=== PATIENT | female | born 1975 | race American Indian/Alaskan Native ===

== ENCOUNTER 2018-02-10 13:06 | Inpatient (IN) | payer MEDICAID ==
[2018-02-10] MEDS ORDERED: Citric Acid/Sodium Citrate Solution 30 ML Cup PO ONE (13:44)
[2018-02-10] MEDS ORDERED: Tranexamic Acid 1,000 MG in Sodium Chloride 0.9% 100 ML IV PRN ×2 (13:44→15:57)
[2018-02-10] MEDS ORDERED: Sodium Chloride 0.9% 10 ML Syringe FLUSH PRN (13:44)
[2018-02-10] MEDS ORDERED: ceFAZolin 2 GM in Premix Bag 1 BAG IV ONE (13:44)
[2018-02-10] MEDS ORDERED: Lactated Ringers 1,000 ML IV SCH ×2 (13:45)
[2018-02-10] MEDS ORDERED: Oxytocin/Normal Saline 60 UNIT/1,000 ML BAG ONE (14:02)
--- NOTE | 2018-02-10 15:08 | HP ---
CHIEF COMPLAINT: Contractions and vaginal bleeding. HISTORY OF PRESENT ILLNESS: A 42-year-old, 9, para 5-0-3-5, currently at 37 and 2/7 weeks' based on 22 and 6/7-week ultrasound, presents to Labor and Delivery complaining of being up several times during the night to urinate and noted some vaginal spotting this morning. On her way into the hospital, started contractions just after passing [place] and those have continued ever since. She has a history of prior and a successful , but wishes to deliver by repeat this time around. Also, had a history of preeclampsia, noticing increased facial puffiness as well as headaches off and on for the past 2 weeks. Blood pressures today are elevated as well. She failed her 1-hour glucose tolerance test. Accu-Chek at this time is 94. The patient has been trying to eat healthy, but has not been checking any of her blood sugars. OBSTETRICAL HISTORY: #8 delivered on 06/22/2016 by , weighing 3657 g female, living, complication gestational diabetes. #7 delivered on 01/31/2015, 37 weeks' gestation, female via primary C- section, 3175 g because of intolerance complicated by gestational diabetes. #6 delivered 05/11/2012, 38 weeks' gestation, female , vaginal delivery, weight 3175 g, preeclampsia and gestational diabetes. #5 delivered on 02/27/2004, 38 weeks' gestation, male infant, weighing 3118 g, induced labor. #4 delivered on 03/11/1999, 42 weeks' gestation female , weighing 3317 g. #3 SAB delivered in 02/1998, 12 weeks' gestation. #2 therapeutic . #1 spontaneous . No other details on the first 2 pregnancies. LABORATORY DATA: Group B strep positive. Blood type O positive. Antibody screen was negative. Rubella is immune. RPR is nonreactive. Hepatitis B nonreactive. HIV negative. Pap smear was LSIL. Gonorrhea and chlamydia were negative. Hepatitis C antibody was positive. Confirmatory testing has not yet been completed. Original urine drug screen was negative, and hemoglobin A1c was 6.2. PROBLEMS: 1. Intrahepatic cholestasis of . Prescription was written for Actigall. The patient was never able to be contacted to start that prescription. 2. Group B strep is positive. 3. Gestational diabetes. The patient reports watching her diet, but not checking blood sugars. Possibly type 2 diabetic. 4. Grand multiparity. 5. Requested tubal ligation, however, wishes to defer that at this time and have this taken care of at a later date. 6. History of bacterial vaginosis this . 7. Reports adoption planned and does not sound like that is very formal, and she is now uncertain about it. The father of the baby is involved, and it sounds like they need to talk. 8. History of preeclampsia with at least 1 or 2 of her prior pregnancies. 9. History of successful vaginal after . 10. Tobacco use disorder. 11. LSIL on Pap smear. 12. Positive HCV antibody screen. Confirmatory testing needs to be done. 13.Limited care in the 3rd trimester, only seen by Dr. Lira once and maybe 1-2 times at [place]. PAST MEDICAL HISTORY: Anxiety, reportedly type 2 diabetes on Janumet, however, on no medications since October of 2016, certainty of diagnosis is quite murky. PAST SURGICAL HISTORY: Right-sided ankle surgery in 2000, primary on 01/31/2015. FAMILY HISTORY: Maternal grandmother with diabetes. Maternal grandfather with hypertension and diabetes. Negative history for twins and cancer. SOCIAL HISTORY: The patient is single. Reports that she is a rare smoker. Denies any use of alcohol or drugs during the course of this . Lives in [place] and is currently unemployed. Father of this baby is Juan Andrade. He is working construction, and she believes that he is healthy and has not remembered to ask him about his health status, so it is really unknown. MEDICATIONS: 1. vitamin 1 daily. 2. Ranitidine 150 mg twice daily as needed. ALLERGIES: 1. Morphine caused shortness of breath and chest tightness. 2. Erythromycin, she cannot remember what the reaction was. 3. NovoLog caused dizziness and lightheadedness likely due to hypoglycemia. REVIEW OF SYSTEMS: No fever, chills, nausea, vomiting, diarrhea, or constipation. Intermittent headaches for the past week as well as facial puffiness. No right upper quadrant pain. No vaginal spotting until today. No shaye vaginal bleeding. No dysuria. No back pain. Skin has been remarkable for rash secondary to itching not that the rash came first. PHYSICAL EXAMINATION: General: This is a pleasant and cooperative, morbidly obese patient appearing her stated age. Vital Signs: Initial blood pressure 177/87, recheck 185/86, pulse of 66, temperature is 98.6, and respiratory rate 18. HEENT: Head is normocephalic and atraumatic. Eyes, ears, nose, and mouth are grossly within normal limits. Neck: Supple without adenopathy. Heart: Regular without obvious murmur. Lungs: Clear to auscultation. Abdomen: Gravid, soft, nontender. heart tones are tracing at 150 beats per minute at baseline. Moderate ssbs-jd-[id number] variability. Accelerations noted. [place] showing contractions about every 3 to 4 minutes. Cervix is 6 cm dilated, 100% effaced, high station. Bulging bag of water intact with small amount of bloody show. Cannot palpate presenting part. Extremities: Trace edema bilaterally. No erythema or tenderness. Skin: Remarkable for excoriations throughout. Last ingestion toast with peanut butter and jelly and 2 sips of Christiano-Aid approximately 2 hours prior to arrival. ASSESSMENT: 1. A 37 and 2/7 weeks' intrauterine based on 23-week ultrasound. 2. 9, para 5-0-3-5. 3. Insufficient care. 4. Intrahepatic cholestasis of , untreated. 5. Gestational possibly type 2 diabetes, untreated. 6. History of preeclampsia, high suspicion for having preeclampsia currently. 7. History of section x1. 8. History of vaginal after x1. The patient requesting repeat delivery by section at this time. 9. History of request for tubal ligation. The patient wishes to defer, which will coincide with this hospital being [facility]. 10.Group B strep positive. Blood type O positive. Rubella immune. 11.Hepatitis C antibody positive. Confirmatory testing not done yet. 12.Tobacco use disorder. 13.Obesity. 14.Uncertain disposition for the baby. 15. Anemia of . 18 Advanced maternal age. PLAN: The patient has been consented for repeat elective low transverse section, and those risks will be specifically outlined in my operative report. She has had opportunity to have her questions answered, and we will be proceeding to the operating room as soon as possible and anticipating use of spinal anesthesia. [facility] /[id number] MTDD
[2018-02-10] MEDS ORDERED: Acetaminophen/oxyCODONE 325-5 MG Tab PO PRN (15:57)
[2018-02-10] MEDS ORDERED: Ondansetron 4 MG/2 ML SDV IV PRN (15:57)
[2018-02-10] MEDS ORDERED: diphenhydrAMINE 50 MG/ML SDV IVPUSH PRN (15:57)
[2018-02-10] MEDS ORDERED: Methylergonovine 0.2 MG/1 ML Amp IM PRN (15:57)
[2018-02-10] MEDS ORDERED: Naloxone 2 MG/2 ML Syringe IVPUSH PRN (15:57)
[2018-02-10] MEDS ORDERED: ePHEDrine 50 MG/ML SDV IVPUSH PRN (15:57)
[2018-02-10] MEDS ORDERED: Acetaminophen 325 MG Tab PO PRN (15:57)
[2018-02-10] MEDS ORDERED: Misoprostol 400 MCG (4 X 100 MCG TAB) RECTAL PRN (15:57)
[2018-02-10] MEDS ORDERED: Carboprost Tromethamine 250 MCG/1 ML Amp IM ONE (15:57)
[2018-02-10] MEDS ORDERED: Oxytocin/Normal Saline 30 UNIT/500 ML BAG IV SCH (16:30)
[2018-02-10] MEDS: Simethicone 80 MG Tab.Chew PO SCH ×2 (17:06→21:47)
[2018-02-10] MEDS: Ferrous Sulfate 325 MG Tab PO SCH (18:04)
[2018-02-10] MEDS ORDERED: Labetalol 100 MG Tab PO SCH (18:15)
[2018-02-10] MEDS: Lactated Ringers 1,000 ML IV SCH (18:46)
[2018-02-10] MEDS: Acetaminophen/oxyCODONE 325-5 MG Tab PO PRN (20:33)
[2018-02-10] MEDS ORDERED: Ketorolac 30 MG/ML SDV IVPUSH SCH (22:00)
--- NOTE | 2018-02-10 22:32 | PN ---
DATE: 02/10/2018 SUBJECTIVE: The patient is less than 6 hours postop and nurses called me in because at 6:15 this evening, they went into check and change her pads and things were fine and then less than an hour later, they went back in to check her again and she had significant oozing, bleeding, and passage of numerous large clots. Fundus is being massaged and remained firm and just above the umbilicus, which is where it had been. Order was given for tranexamic acid, which was given and the bleeding slowed significantly and she has not had further blood loss. We weighed the petra and it came in at 755 g. There was, however, blood and clots on the sheets as well, so I estimated this to be at a minimum of 800 mL, if not even up to a 1000 mL of blood for this hemorrhage at this to her approximate 600 mL of blood loss at surgery, for a grand total of 1600mL. The patient reports that she had felt lightheaded initially when the nurse came into the room, but that is resolved. She denies any nausea. She has not been out of bed and has remained supine. Denies any shortness of breath or chest pressure. Denies being able to feel any of the blood clots that are coming out. She is complaining of some tenderness and pain when we massaged the fundus which is expected, especially since she was not able to have any Duramorph with the procedure due to history of morphine allergy. Otherwise, the patient denies any new complaints. No new preeclamptic symptoms. OBJECTIVE: Blood pressures have remained elevated for some time and an order for labetalol had previously been given. They came back down to near normal range and some systolics less than 100. She is getting a bolus of fluid and pressures are coming back up into the 140s over 90s. ASSESSMENT: hemorrhage, estimated between 800 and 1000 mL at this time for a grand total of approximately 1600 mL. Contributing factors to this are grand multiparity, large baby, polyhydramnios, labor at time of presentation, and delivery by . Also, with history of preeclampsia, and potential for development of HELLP syndrome. PLAN: Continue with a bolus of IV fluids, Pitocin was restarted at 50 to finish off the bag that she has, and then we will continue to monitor her bleeding closely. We would consider ultrasound for uterine contents, transfer to a level of higher care. For now, we will start with a CBC, PT, PTT, and fibrinogen to further evaluate. Continue to monitor closely for DIC. Anticipate that the patient will need a blood transfusion. She verbalized understanding to all of this and would be in agreement to do a blood transfusion if indicated. We will continue to monitor her very closely and carefully assess fundal height and uterine firmness. [facility] /[id number] PADMINI
--- NOTE | 2018-02-11 01:07 | OR ---
DATE: 02/10/2018 PROCEDURE PERFORMED: Repeat low transverse section. PREOPERATIVE DIAGNOSES: 1. A 37 and 2/7 weeks' intrauterine in active labor. 2. 9, para 5-0-3-5 by 23 week plus ultrasound. 3. Insufficient care. 4. Intrahepatic cholestasis of , untreated. 5. Gestational diabetes, not being treated, question if type 2 diabetic. 6. History of preeclampsia, prior . 7. History of section x1 and successful vaginal after section x1. 8. Group B streptococcus positive. Blood type O positive. Rubella immune. 9. Hepatitis B antibody positive, confirmatory testing not yet done. 10.Tobacco use. 11.Obesity. 12.Advanced maternal age. POSTOPERATIVE DIAGNOSES: 1. A 37 and 2/7 weeks' intrauterine in active labor. 2. 9, para 6-0-3-6 by 23 week plus ultrasound. 3. Insufficient care. 4. Intrahepatic cholestasis of , untreated. 5. Gestational diabetes, not being treated, question of type 2 diabetic. 6. History of preeclampsia, prior . 7. History of section x1 and successful vaginal after section x1. 8. Group B streptococcus positive. Blood type O positive. Rubella immune. 9. Hepatitis B antibody positive, confirmatory testing not yet done. 10.Tobacco use. 11.Obesity. 12.Delivery of a viable breech male. 13.Anemia of . 14.Gestational hypertension. Protein-creatinine ratio was only 0.21, but she did have elevated blood pressures. 15.Advanced maternal age. SURGEON: Dr. Heather Page RADIAGRAPH OPERATOR: Dr. Chepe Rudd SECOND ASSIST: Aleah Mann, MS3 BRIEF HISTORY: A 42-year-old female presented to the hospital reporting some light vaginal bleeding and spotting. Also, regular contractions for the previous 15 to 20 minutes and requesting elective repeat section. After review of her medical charts and history, she has every indication to be delivered at this time. Blood pressures were in the 170s and 180s over 90s. She had untreated ICP and untreated gestational diabetes and found to be in active labor with the cervix dilated 6 cm and 100% effaced with bulging bag of water present. presenting parts were not palpated. Urgent plans for section were made, and she was brought to the operating room. CONSENT: Discussed with the patient indications, risks, benefits, and alternatives of repeat low transverse section including risk of infection and plan for preoperative antibiotics, risk of bleeding to the point of requiring a blood transfusion as well as its inherent risks, risk of injury to any internal organs and adjacent structures including but not limited to large blood vessels, nerves, veins, intestines, fallopian tubes, ovaries, uterus, bladder, and any other adjacent structures, potential for complications for her and/or the baby that would require transfer to a higher level of care and remote risk of . She had an opportunity to answer questions, and all of those were answered and consent forms were signed and placed in the chart. ANESTHESIA: Spinal. DETAILS OF PROCEDURE: The patient was taken to the operating room and spinal anesthesia obtained. She was laid in the dorsal supine position with leftward tilt, and the pannus and abdomen taped up. Escobar indwelling catheter was placed. She was prepped in the usual fashion. Sterile drapes then applied. Skin tested and a Pfannenstiel skin incision was made with scalpel, carried down through to the underlying fascia using cautery and finger dissection. Fascia incised in the midline bilaterally with cautery and extended with traction and cautery. Superior fascia grasped with Elmer's, tented up, and dissected off bluntly. Inferior fascia also tented up and rectus muscles dissected off bluntly. Peritoneal cavity entered with a very careful use of cautery and blunt finger dissection. The Karel retractor then placed, and uterus palpated, obvious that there were copious amounts of amniotic fluid. head was not felt down in the lower uterine segment. Bladder flap was created by using Metzenbaum and smooth pickups in the usual fashion. Appropriate location for low transverse uterine incision was made and that was performed with scalpel and carried down until just a few cell layers were present. Hysterotomy site created with actual finger penetration and blunt finger dissection. Amniotic sac then ruptured with Allis forceps and there a was at least 2 liters of amniotic fluid. The feet of the baby were felt and brought out through the hysterotomy site, and he was delivered as double footling breech. Once we reached the level of the hips, he was turned sacrum anterior and brought out to the level of the chest. He was then rotated bringing the anterior shoulder as the baby's right arm tried to sweep it over the head and across the chest and was unsuccessful, therefore rotated him to right arm anterior. Dr. Rudd then was assisting with trying to get the baby out, and we were having some difficulty. Ultimately, we were able to bring the baby down further, where the right arm could then be delivered across the chest and then baby rotated back to where the left arm could be delivered and then the baby's head was delivered, making sure to maintain flexion at the neck. Baby was suctioned at the nose and mouth, and the three- vessel umbilical cord was doubly clamped, and he was taken over to the warmer for further evaluation and resuscitation. Placenta delivered via gentle cord traction and concomitant uterine massage nearly spontaneously. Uterus cleared of all clots and debris with a dry lap sponge, and the hysterotomy site closed with a running lock stitch of 0 Vicryl in the usual fashion. Additional bleeders were controlled with an additional running imbricating stitch and iqquoh-yf-kfpxe suture as applicable on about half of the hysterotomy site. There still was one bleeding area, which was controlled with a superficial [id number]-qn-tdhgi suture. This layer was irrigated, cleared of all clots and debris. The Karel retractor and 2 lap sponges were removed and then the pericolic gutters were cleared of all clots and debris. Hemostasis was verified at the hysterotomy site, and the peritoneal layer was brought together with a remnant stitch of 0 Vicryl in a running simple fashion. The subcutaneous tissues were then irrigated, cleared of any clots or debris, and subcutaneous bleeders treated with cautery. Skin was then closed with yaritza. The patient tolerated the procedure well. ESTIMATED BLOOD LOSS: 650 mL. FLUIDS: 1100 mL crystalloids. URINE OUTPUT: 250 mL clear. COMPLICATIONS: None. DISPOSITION: Mother and baby will be reunited after mother recovers in the PACU. Baby taken down to the nursery for further management. FINDINGS: Viable male , breech presentation. Weight 9 pounds 2 ounces, 4140 g, 20-1/4 inches long. scores of 9 and 9. [facility] /[id number] PADMINI
[2018-02-11] MEDS: Lactated Ringers 1,000 ML IV SCH ×2 (02:41→06:59)
[2018-02-11] MEDS: Acetaminophen/oxyCODONE 325-5 MG Tab PO PRN ×5 (03:00→21:47)
[2018-02-11] MEDS: Simethicone 80 MG Tab.Chew PO SCH ×4 (08:39→21:47)
[2018-02-11] MEDS: Ferrous Sulfate 325 MG Tab PO SCH ×2 (08:39→17:14)
[2018-02-11] MEDS: Docusate Sodium 100 MG Cap PO PRN ×2 (08:39→21:47)
--- NOTE | 2018-02-11 10:41 | PN ---
DATE: 02/11/2018 SUBJECTIVE: Postop day #1, status post requested repeat low transverse section. The patient did receive 2 units of packed red blood cells for hemorrhage after returning to the L&D floor yesterday evening. Total estimated EBL, including surgery loss, around 1600 mL. Per nursing, the patient has had dark urine output and we are currently bolusing her with fluids. No other concerns per nursing staff. No concerns per patient. She feels that her pain is well controlled on current medications. She was tolerating a clear liquid diet yesterday and did have a sandwich and some popcorn overnight and tolerated this well. She denies fevers or chills, headaches or blurry vision, lightheadedness or dizziness, nausea or vomiting, shortness of breath or chest pain, sharp abdominal pains or tenderness in any extremity. She feels the swelling in her face and extremities has improved. She has not yet passed gas or had a bowel movement. Her lochia is improving, mild in amount without passage of large clots, and and she denies any gushes. Escobar catheter is in place and the patient has not yet ambulated. OBJECTIVE: Vital Signs: Temperature 97.4 Fahrenheit, heart rate 63, blood pressure 114/63, respiratory rate 16, and oxygen saturation 99% on room air. General: Pleasant, resting comfortably, and in no acute distress. Heart: Regular rate and rhythm. S1 and S2. Lungs: Clear to auscultation bilaterally with normal respiratory effort. Abdomen: Soft, obese, nondistended. The uterus is firm and 4 fingerbreadths above the umbilicus with no excessive tenderness by palpation. The dressing over her incision is dry and intact. There is about 1 cm of dark red shadowing on the left side. Neurologic: No obvious neurologic deficits. Extremities: Trace edema in the upper and lower extremities bilaterally. No erythema or tenderness noted in any extremity. Skin: Warm, dry, and well perfused. LABORATORY DATA: White blood cells 16.7, hemoglobin 9.5, platelets 166. AST 29 , ALT 14. ASSESSMENT: 1. Postop day #1, status post requested repeat low transverse section. 2. A 37 and 2/7 weeks' intrauterine confirmed with a 23-week ultrasound. 3. G9, P6-0-3-6. 4. Insufficient care. 5. Intrahepatic cholestasis of , untreated. 6. Type 2 diabetes, untreated since October 2016 with most recent hemoglobin A1c 7.2. 7. History of preeclampsia. 8. History of section x1. 9. History of vaginal after x1. 10.History of request for tubal ligation. 11.Group B Streptococcus positive, blood type O positive, rubella immune. 12.Hepatitis C antibody positive. Confirmatory testing pending. 13.Tobacco use disorder. 14.Obesity. 15.Uncertain disposition for baby. 16.Anemia of . 17.Advanced maternal age. 18. hemorrhage, status post transfusion 2 units packed RBCs, currently asymptomatic. PLAN: We will continue to monitor closely for signs and symptoms of anemia. We will repeat CBC tomorrow morning to reassess. We will continue to monitor urine output closely and will remove Escobar catheter this afternoon if output improves. With history of uncontrolled type 2 diabetes, we will begin premeal blood glucose monitoring. Continue all other routine and postoperative cares. Please see orders for further details. The patient was encouraged to ambulate after the Escobar is removed. The patient expressed understanding and is in agreement with the above plan and all of her questions were answered. The history, physical, assessment and plan are per Dr. Campo, and this note is being scribed for Dr. Campo. [facility] /[id number] Patient seen and examined. Agree with note as scribed on my behalf by Aleah Mann MS3. -briar shop supervisor 02/20/18 PADMINI
[2018-02-11] MEDS ORDERED: Dexamethasone 4 MG/ML SDV IV ONE (15:36)
[2018-02-11] MEDS ORDERED: Ketorolac 30 MG/ML SDV IVPUSH ONE (15:36)
[2018-02-11] MEDS ORDERED: Bupivacaine 0.75%/D5W 2 ML Amp ONE (15:36)
[2018-02-11] MEDS ORDERED: Propofol 200 MG/20 ML SDV IV ONE (15:36)
[2018-02-11] MEDS ORDERED: fentaNYL 100 MCG/2 ML SDV IV ONE (15:36)
[2018-02-11] MEDS: metFORMIN 500 MG Tab PO SCH (17:14)
[2018-02-11] MEDS: Ibuprofen 800 MG Tab PO PRN (17:15)
[2018-02-12] MEDS: Ibuprofen 800 MG Tab PO PRN ×3 (01:33→20:47)
[2018-02-12] MEDS: Acetaminophen/oxyCODONE 325-5 MG Tab PO PRN ×5 (01:33→22:26)
[2018-02-12] MEDS: Ferrous Sulfate 325 MG Tab PO SCH ×2 (08:27→17:48)
[2018-02-12] MEDS: metFORMIN 500 MG Tab PO SCH ×2 (08:27→17:47)
[2018-02-12] MEDS: Simethicone 80 MG Tab.Chew PO SCH ×4 (08:27→20:47)
[2018-02-12] MEDS: Docusate Sodium 100 MG Cap PO PRN ×2 (08:28→17:50)
--- NOTE | 2018-02-12 12:46 | PN ---
DATE: 02/12/2018 SUBJECTIVE: Postoperative day #2, status post requested repeat low transverse section. Concerns per Nursing include lack of interaction of mother with the baby. Discussed having the baby spend more time rooming with mother today than at Nursery. Concerns per patient include lack of bowel movements or passing gas and feeling "gassy." No other concerns per patient. She feels that her pain is well controlled on current medications. She is tolerating a general diet REVIEW OF SYSTEMS: She reports nausea and thinks this is related to her lack of bowel movement and passing gas. She denies fevers or chills, headaches or blurry vision, lightheadedness or dizziness, vomiting, shortness of breath or chest pain, sharp abdominal pain, or erythema or tenderness in any extremity. She feels that the swelling in her extremities continues to improve. Her lochia is mild in amount and improving. She is ambulating without difficulty. OBJECTIVE: Vital Signs: Temperature 97.7, blood pressure 130/64, heart rate 70, respiratory rate 20, and oxygen saturation 98% on room air. General: Pleasant, resting comfortably, and in no acute distress. Heart: Regular rate and rhythm. S1 and S2. Lungs: Clear to auscultation bilaterally with normal respiratory effort. Abdomen: Soft, obese, and mildly distended. Pelvic: The uterus is firm but it is difficult to appreciate the exact location due to large pannus, but it is approximately 5 fingerbreadths above the umbilicus. No excessive tenderness by palpation. Her incision is covered with clean gauze. On removal of the gauze, the incision is without erythema, edema, or drainage. Neurologic: No obvious neurologic deficits. Extremities: No edema, erythema, or tenderness in any extremity. Skin: Warm, dry, and well perfused. LABORATORY DATA: White blood cells 15.9, hemoglobin 9.6, platelets 188. Premeal blood glucose measurements from yesterday include 128 and 131. Fasting glucose this morning before breakfast is 91. ASSESSMENT: 1. Postoperative day #2, status post requested repeat low transverse section. 2. A 37 and 2/7 weeks' intrauterine confirmed with a 23-week ultrasound. 3. G9, P5-0-3-5. 4. Insufficient care. 5. Intrahepatic cholestasis of , untreated. 6. Type 2 diabetes, untreated, since 10/2016 with most recent hemoglobin A1c of 7.2. 7. History of preeclampsia. 8. History of section x1. 9. History of vaginal after x1. 10.History of request for tubal ligation. 11.Group B streptococcus positive. Blood type O positive. Rubella immune. 12.Hepatitis C antibody positive. Confirmatory testing pending. 13.Tobacco use disorder. 14.Obesity. 15.Anemia of . 16.Advanced maternal age. 17. hemorrhage, status post transfusion 2 units of packed red blood cells, asymptomatic. PLAN: I encouraged the patient to ambulate to help with gassy feeling and distention. Also discussed choosing foods rich in fiber and nonconstipating. As hemoglobin is stable, but she is still anemic, we will continue to monitor closely for signs and symptoms of anemia. Continue all other routine and postoperative cares. Please see orders for further details. Per the patient, she did have discussion with father of the baby yesterday, and they have decided to keep the baby, and [facility]et did visit with them yesterday. We anticipate discharge tomorrow, 02/13/2018. The patient expressed understanding and is in agreement with the above plan, and all of her questions were answered. The history, physical, assessment and plan are per Dr. Pike; and this note is being scribed for Dr. Pike. [facility] /[id number] MTDDesire
[2018-02-12] MEDS ORDERED: Bisacodyl 10 MG Supp RECTAL ONE (13:14)
[2018-02-13] MEDS: Acetaminophen/oxyCODONE 325-5 MG Tab PO PRN ×4 (02:49→19:41)
[2018-02-13] MEDS: Ibuprofen 800 MG Tab PO PRN ×3 (06:34→23:19)
[2018-02-13] MEDS: Ferrous Sulfate 325 MG Tab PO SCH ×2 (08:08→18:10)
[2018-02-13] MEDS: metFORMIN 500 MG Tab PO SCH ×2 (08:08→18:11)
[2018-02-13] MEDS: Simethicone 80 MG Tab.Chew PO SCH ×4 (08:08→23:18)
--- NOTE | 2018-02-13 10:39 | PN ---
DATE: 02/13/2018 SUBJECTIVE: Postoperative day #3, status post requested repeat low transverse section. No concerns per nursing staff. The patient was given a suppository yesterday and subsequently was able to have a bowel movement and began passing gas. No concerns per patient. She feels that her pain is well controlled on current medications. She is tolerating a general diet and ambulating without difficulty. She denies fevers or chills, headaches or blurry vision, lightheadedness or dizziness, nausea or vomiting, shortness of breath or chest pain, sharp abdominal pains, or edema, erythema or tenderness in any extremity. Her lochia is mild in amount and continues to improve. The patient denies dysuria or burning with urination. OBJECTIVE: Vital Signs: Temperature 98.4 Fahrenheit, heart rate 85, blood pressure 111/69, respiratory rate 18, and oxygen saturation 98% on room air. General: Pleasant, resting comfortably, and in no acute distress. Heart: Regular rate and rhythm. S1 and S2. Lungs: Clear to auscultation bilaterally with normal respiratory effort. Abdomen: Soft, obese, and nondistended. The uterus is firm and approximately 5 fingerbreadths above the umbilicus, which is difficult to appreciate with the large pannus. The incision is covered with gauze that has minimal blood. The incision itself is without erythema, edema, or drainage. Neurologic: No obvious neurologic deficits. Extremities: No edema, erythema, or tenderness in any extremity. Skin: Warm, dry, and well perfused. LABORATORY DATA: Last premeal blood glucose at 5:30 p.m. yesterday, 128. The patient is currently on metformin b.i.d. ASSESSMENT: 1. Postoperative day #3, status post requested repeat low transverse section. 2. A 37 and 2/7 weeks' intrauterine , confirmed on a 23-week ultrasound. 3. 9, para 5-0-3-5. 4. Insufficient care. 5. Intrahepatic cholestasis of , untreated. 6. Type 2 diabetes, untreated upon admit since 10/2016. Most recent hemoglobin A1c of 7.2, currently taking metformin b.i.d. with t.i.d. premeal glucose checks. 7. History of preeclampsia. 8. History of section x1. 9. History of vaginal after x1. 10.History of request for tubal ligation. 11.Group B Streptococcus positive, blood type O positive, rubella immune. 12.Hepatitis C antibody positive. Confirmatory test pending. 13.Tobacco use disorder. 14.Obesity. 15.Anemia of . 16.Advanced maternal age. 17. hemorrhage, status post transfusion 2 units packed red blood cells, currently symptomatic. 18.Transportation issues. PLAN: With complication of hemorrhage, will plan for discharge tomorrow and continue to observe the patient today. We will continue to monitor closely for signs and symptoms of anemia. Will continue all other routine and postoperative cares. Please see orders for further details. For followup appointments, the patient did request to be seen out at [facility] in [place] if possible, but was informed of transportation options available and was more open to being seen in [place] for followup. At this time, her baby is being admitted for hyperbilirubinemia and treated with phototherapy. The patient expressed understanding of and agreement with the above plan, and all of her questions were answered. The history and physical, assessment and plan are per Dr. Campo and this note is being scribed for Dr. Campo. [facility] /[id number] MTDDesire
[2018-02-13] MEDS: Docusate Sodium 100 MG Cap PO PRN (19:42)
[2018-02-14] MEDS: Acetaminophen/oxyCODONE 325-5 MG Tab PO PRN ×3 (00:20→08:32)
[2018-02-14] MEDS: Ferrous Sulfate 325 MG Tab PO SCH (08:31)
[2018-02-14] MEDS: metFORMIN 500 MG Tab PO SCH (08:31)
[2018-02-14] MEDS: Docusate Sodium 100 MG Cap PO PRN (08:32)
[2018-02-14] MEDS: Ibuprofen 800 MG Tab PO PRN (08:32)
[2018-02-14] MEDS: Simethicone 80 MG Tab.Chew PO SCH ×2 (08:33→15:23)
--- NOTE | 2018-02-14 22:09 | DISCH ---
ADMISSION DIAGNOSES: 1. A 37 and 2/7 week intrauterine based on 23 week ultrasound. 2. 9, para 5-0-3-5. 3. Insufficient care, first visit at 31 weeks' gestation. 4. intrahepatic cholestasis of , untreated. 5. Gestational possibly type 2 diabetic, untreated. 6. History of preeclampsia, suspicion of current preeclampsia. 7. History of section x1. 8. History of vaginal after x1. The patient requests section for this delivery. 9. History of requests for tubal ligation, which will be deferred at this time. 10.Group B strep positive. Blood type O positive. Rubella immune. 11.Hepatitis C antibody positive, confirmatory testing not yet done. 12.Tobacco use disorder. 13.Obesity. 14.Uncertain disposition of the baby. 15.Anemia of . 16.Advanced maternal age. DISCHARGE DIAGNOSES: 1. A 37 and 2/7 week intrauterine based on 23 week ultrasound. 2. 9, para 6-0-3-6. 3. Insufficient care, first visit at 31 weeks' gestation. 4. Confirmed intrahepatic cholestasis of . 5. Gestational possibly type 2 diabetic, untreated. 6. Confirmed preeclampsia of . 7. History of section x1. 8. History of vaginal after x1. The patient requests section for this delivery. 9. History of requests for tubal ligation, which will be deferred at this time. 10.Group B strep positive. Blood type O positive. Rubella immune. 11.Hepatitis C antibody positive, confirmatory testing not yet done. 12.Tobacco use disorder. 13.Obesity. 14.Anemia of . 15.Advanced maternal age. BRIEF HISTORY: This 42-year-old female presented to the hospital with complaints of contractions increasing in frequency and severity, history of prior section with successful , but the patient requested repeat section for this delivery. The patient had poor care for this . First visit at [address] Elin Lira. See admission history for full details. HOSPITAL COURSE: Infant was found to be in double footling breech position via section. Mother also had postoperative hemorrhage approximately 6 hours postoperative. The patient had 800 to 1000 mL blood loss. For hemorrhage, her grand total of 1600 mL blood loss. The patient received a blood transfusion with a hemoglobin of 8.7, and hemoglobin on february 12 was 9.6. The patient was started on metformin 500 mg twice a day with meals with 3 times a day blood sugar checks. The patient visited with [employer] and has decided to retain custody of her and not pursue adoption. The patient's recovery from section has been progressing well. She required a suppository on February 12, 2018 for a bowel movement. Since that suppository, she has not had a bowel movement, but she is having flatulence when she is standing and walking. The patient denies headaches, nausea, vomiting, blurry vision, or abdominal pain. Her fundus is firm, but due to the large pannus, unable to locate the exact relation to umbilicus. Lochia is in a decreasing amount. The patient describes it as slightly less than a menstrual period. DISCHARGE CONDITION: Good. PHYSICAL EXAMINATION: Vital Signs: Temperature 96.6 Fahrenheit, pulse 81, blood pressure 130/90, oxygen saturation 100% on room air with respirations 16. Heart: Regular without murmur. S1 and S2 and regular rate. Lungs: Clear to auscultation bilaterally. Abdomen: Soft and nontender. Bowel sounds normoactive. Fundus is firm with relation to umbilicus. Difficult to assess due to large pannus. Extremities: Edema of lower legs and feet +1. No erythema or tenderness. LABORATORY DATA: Hemoglobin on admission on February 10 was 8.7. Hemoglobin on February 12 was 9.6. Platelets on February 10 was 199. Platelets on february 12 was 188. DISPOSITION: Home with family. MEDICATIONS: 1. Tylenol 600 mg every 6 hours as needed for pain. 2. Colace 100 mg twice daily as needed for constipation. 3. Ibuprofen 600 mg every 8 hours as needed for pain. 4. Metformin 500 mg twice a day with meals. 5. Percocet 325/5 mg one to two tablets as needed every 4 to 6 hours for pain. INSTRUCTIONS: The patient is to take her infant to [facility] on Saturday for weight and bilirubin check. At that time, she is able to have a Depo-Provera shot for control as she is having to defer her tubal ligation surgery. At that appointment, her yaritza will be removed as well. The patient will need to have a hip ultrasound done, will need to be ordered through [place] and can be done here at [facility]. At the appointment on February 17, she will need to make a 6 week visit with her provider at [facility]. During this 6 weeks, she should not lift anything over 25 pounds and needs to be on pelvic rest for those 6 weeks. Routine section delivery instructions were provided and her questions were answered. D[place]ed with patient [place] to these appointments. ANDIE /[id number] PADMINI
== END 2018-02-14 11:45 | disposition home or self-care (01) | DRG 765 ==
LOC: DL.OBCHECK 13:06 → DL.OB 13:40 → EEVIPCON 15:01 → DL.OB 15:01 → OBSVTOIN 15:01 → DL.MS 02-13 09:40
PROVIDERS: ADMIT Family Medicine; ATTEND Family Medicine
PROC: 10D00Z1 Extraction of Products of Conception, Low, Open Approach (ICD-10-PCS; principal; 2018-02-10)
PROC: 30233N1 Transfusion of Nonautologous Red Blood Cells into Peripheral Vein, Percutaneous Approach (ICD-10-PCS; 2018-02-10)
PROC: 30233N1 Transfusion of Nonautologous Red Blood Cells into Peripheral Vein, Percutaneous Approach (ICD-10-PCS; 2018-02-11)
DX: O34.211 Maternal care for low transverse scar from previous cesarean delivery (principal); O72.2 Delayed and secondary postpartum hemorrhage; Z3A.37 37 weeks gestation of pregnancy; Z37.0 Single live birth; O24.425 Gestational diabetes mellitus in childbirth, controlled by oral hypoglycemic drugs; O99.214 Obesity complicating childbirth; E66.01 Morbid (severe) obesity due to excess calories; Z68.35 Body mass index [BMI] 35.0-35.9, adult; O99.334 Smoking (tobacco) complicating childbirth; F17.200 Nicotine dependence, unspecified, uncomplicated; O99.013 Anemia complicating pregnancy, third trimester; D64.9 Anemia, unspecified; O13.4 Gestational [pregnancy-induced] hypertension without significant proteinuria, complicating childbirth; O99.613 Diseases of the digestive system complicating pregnancy, third trimester; K80.50 Calculus of bile duct without cholangitis or cholecystitis without obstruction
CPT/HCPCS: 36415; 36430; 80305; 82570; 82962; 83036; 83615; 84156; 84450; 84460; 84520; 84550; 85025; 85027; 85384; 85610; 85730; 86850; 86900; 86901; 86920; 86922; 87522; 87902; A9270-GY; J0690; J1100; J1885; J2590; J2704; J3010; J7050; J7120; P9016

== ENCOUNTER 2018-02-17 00:42 | Emergency (ER) | payer MEDICAID ==
--- NOTE | 2018-02-17 01:06 | EDM.PDOC ---
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 been fine till tonight started bleeding vaginally & incision site. no pain had pain meds. 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: Other (see below) Other Treatments PROPULSION SYSTEMS ENGINEER: percocets last taken at 2100 last evening - Related Data Allergies Allergy/AdvReac Type Severity Reaction Status Date / Time erythromycin base Allergy Cannot Verified 02/17/18 00:58 Remember morphine Allergy Difficulty Verified 02/17/18 00:58 Breathing Home Meds: Home Meds Vit with Ca/FA/Iron [ Plus Iron] 1 tab PO DAILY 02/10/18 [ History] Acetaminophen [Tylenol] 650 mg PO Q6H PRN tablet 02/14/18 [Rx] Acetaminophen/oxyCODONE [Percocet 325-5 MG] 1 tab PO Q4H PRN #0 tablet 02/14/18 [Rx] Acetaminophen/oxyCODONE [Percocet 325-5 MG] 2 tab PO Q4H PRN #0 tablet 02/14/18 [Rx] Docusate Sodium [Colace] 100 mg PO Q12H PRN cap 02/14/18 [Rx] Ibuprofen [IMW: Ibuprofen] 800 mg PO Q8H PRN tablet 02/14/18 [Rx] metFORMIN [Glucophage] 500 mg PO BIDMEALS tablet 02/14/18 [Rx] Ferrous Sulfate [Iron] 325 mg PO BID 02/17/18 [History] Past Medical History 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: , 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 , 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 Psychiatric History: Reports: Anxiety Endocrine/Metabolic History: Reports: Diabetes, Gestational, Diabetes, Type II, Obesity/BMI 30+ Hematologic History: Reports: Anemia - Infectious Disease History Infectious Disease History: Reports: Hepatitis C Social & Family History - Family History Family Medical History: Noncontributory - Tobacco Use Smoking Status *Q: Current Every Day Smoker Years of Tobacco use: 20 Packs/Tins Daily: 0.5 Used Tobacco, but Quit: No Second Hand Smoke Exposure: Yes - Caffeine Use Caffeine Use: Reports: Soda - Recreational Drug Use Recreational Drug Use: No ED ROS GENERAL - Review of Systems Review Of Systems: ROS reveals no pertinent complaints other than HPI. ED EXAM, GI/ABD - Physical Exam Exam: See Below Exam Limited By: No Limitations General Appearance: Alert, WD/WN, Mild Distress, Other (discomfort) Ears: Hearing Grossly Normal Throat/Mouth: Normal Voice, No Airway Compromise Head: Atraumatic Neck: Non-Tender, Full Range of Motion Respiratory/Chest: No Respiratory Distress Cardiovascular: Regular Rate, Rhythm GI/Abdominal Exam: Soft, Non-Tender, Other (incision intact minimal oozing,) (Female) Exam: Other (no further vag bleeding). No: Vaginal Bleeding Neurological: Alert, Oriented, Normal Cognition, Normal Gait, No Motor/Sensory Deficits Psychiatric: Normal Affect, Normal Mood Skin Exam: Warm, Dry, Normal Color Lymphatic: No Adenopathy Course - Vital Signs Last Recorded V/S: Last Vital Signs Temp 36.1 C 02/17/18 00:48 Pulse 97 02/17/18 00:48 Resp 18 02/17/18 00:48 BP 163/71 H 02/17/18 00:48 Pulse Ox 99 02/17/18 00:48 - Orders/Labs/Meds Labs: Laboratory Tests 02/17/18 02/17/18 Range/Units 00:50 00:50 WBC 13.8 H (5.0-10.0) 10^3/uL RBC 4.18 L (4.2-5.4) 10^6/uL Hgb 11.5 L D (12.0-16.0) g/dL Hct 36.2 L (37.0-47.0) % MCV 86.6 D (80-100) fL MCH 27.5 (27.0-34.0) pg MCHC 31.8 L (33.0-35.0) g/dL Plt Count 342 D (150-450) 10^3/uL Neut % (Auto) 75.5 H (42.2-75.2) % Lymph % (Auto) 15.2 L (20.5-50.1) % [place] % (Auto) 8.8 H (2-8) % Eos % (Auto) 0.4 L (1.0-3.0) % Baso % (Auto) 0.1 (0.0-1.0) % Sodium 137 (135-145) mmol/L Potassium 4.3 (3.6-5.0) mmol/L Chloride 108 (101-111) mmol/L Carbon Dioxide 24.0 (21.0-31.0) mmol/L Anion Gap 9.3 BUN 9 (7-18) mg/dL Creatinine 0.6 (0.6-1.3) mg/dL Est Cr Clr Drug Dosing 125.73 mL/min Estimated GFR (MDRD) > 60 BUN/Creatinine Ratio 15.00 Glucose 127 H (74-105) mg/dL Calcium 7.9 L (8.4-10.2) mg/dl Total Bilirubin 1.2 H (0.2-1.0) mg/dL AST 62 H (10-42) IU/L ALT 32 (10-60) IU/L Alkaline Phosphatase 179 H (42-121) IU/L Total Protein 6.6 L (6.7-8.2) g/dl Albumin 2.3 L (3.2-5.5) g/dl Globulin 4.3 Albumin/Globulin Ratio 0.53 - Re-Assessments/Exams Free Text/Narrative Re-Assessment/Exam: 02/17/18 01:33 results discussed with pt who is feeling much better presently Departure - Departure Time of Disposition: 01:33 Disposition: Home, Self-Care 01 Condition: Good Clinical Impression: Post-op bleeding Qualifiers: Surgical complication system/body Area: subcutaneous tissue Procedure type: non -dermatologic Qualified Code(s): L76.22 - Postprocedural hemorrhage of skin and subcutaneous tissue following other procedure - Discharge Information Forms: ED Department Discharge Additional Instructions: 1) rest and avoid bending lifting straining 2) see Dr Campo tomorrow.
[2018-02-17 01:22] LABS: CHLORIDE,CL 108 mmol/L (101-111); SODIUM,NA 137 mmol/L (135-145)
== END 2018-02-17 01:50 | disposition home or self-care (01) ==
LOC: DL.ED 00:42
DX: O72.2 Delayed and secondary postpartum hemorrhage (principal); F17.210 Nicotine dependence, cigarettes, uncomplicated; E11.9 Type 2 diabetes mellitus without complications; Z88.1 Allergy status to other antibiotic agents; Z88.5 Allergy status to narcotic agent; Z79.899 Other long term (current) drug therapy
CPT/HCPCS: 36415; 80053; 85025; 99283

== ENCOUNTER 2023-02-13 23:12 | Emergency (ER) | payer MEDICAID ==
[2023-02-13 23:51] LABS: BASOPHILS PERCENT AUTO 0.2 % (0.0-1.0); EOSINOPHILS PERCENT AUTO 0.8 % (1.0-3.0); HEMATOCRIT 38.3 % (37.0-47.0); HEMOGLOBIN 12.7 g/dL (12.0-16.0); LYMPHOCYTES PERCENT AUTO 35.3 % (20.5-50.1); MEAN CORPUSCULAR HEMOGLOBIN 30.6 pg (27.0-34.0); MEAN CORPUSCULAR HGB CONC 33.2 g/dL (33.0-35.0); MEAN CORPUSCULAR VOLUME 92.3 fL (80-100); NEUTROPHILS PERCENT AUTO 55.7 % (42.2-75.2); PLATELET COUNT,PLT 117 10^3/uL (150-450); RED BLOOD CELL COUNT 4.15 10^6/uL (4.2-5.4); WHITE BLOOD CELL COUNT,WBC 5.1 10^3/uL (5.0-10.0)
[2023-02-14 00:05] LABS: HCG QUALITATIVE,SERUM POSITIVE (NEGATIVE)
[2023-02-14 00:06] LABS: PROTHROMBIN TIME 10.6 SEC (9.0-12.0)
[2023-02-14 00:12] LABS: ALANINE AMINOTRANSFERASE,ALT 89 U/L (14-59); ALBUMIN 2.8 g/dL (3.4-5.0); ALKALINE PHOSPHATASE 287 U/L (46-116); ANION GAP 13.9 mEq/L (7-13); ASPARTATE AMNIOTRANSFERASE,AST 57 U/L (15-37); BILIRUBIN TOTAL 0.3 mg/dL (0.2-1.0); BLOOD UREA NITROGEN,BUN 9 mg/dL (7-18); BUN/CREATININE RATIO 11.4 (No establ ref range); CALCIUM 8.2 mg/dL (8.5-10.1); CARBON DIOXIDE,CO2 23 mmol/L (21-32); CHLORIDE,CL 104 mmol/L (98-107); CREATININE 0.79 mg/dL (0.55-1.02); EST CRCL DRUG DOSING (CG) 87.45 mL/min; POTASSIUM,K 3.9 mmol/L (3.5-5.1); PROTEIN TOTAL,TP 7.5 g/dL (6.4-8.2); SODIUM,NA 137 mmol/L (136-145)
[2023-02-14 00:15] LABS: ESTIMATED GFR 94 mL/min (>=60); GLUCOSE RANDOM 414 mg/dL (70-99)
== END 2023-02-14 03:55 | disposition home or self-care (01) ==
LOC: DL.ED 23:12
DX: O03.4 Incomplete spontaneous abortion without complication (principal); I10 Essential (primary) hypertension; E11.9 Type 2 diabetes mellitus without complications; E66.9 Obesity, unspecified; Z88.5 Allergy status to narcotic agent; Z88.1 Allergy status to other antibiotic agents; Z72.0 Tobacco use; Z79.84 Long term (current) use of oral hypoglycemic drugs
CPT/HCPCS: 36415; 76817; 80053; 84702; 84703; 85025; 85610; 86850; 86900; 86901; 99283; 99285

== ENCOUNTER 2023-04-22 17:30 | Emergency (ER) | payer MEDICAID ==
[2023-04-22] MEDS ORDERED: Sodium Chloride 0.9% 1,000 ML IV ONE (18:26)
[2023-04-22] MEDS ORDERED: Sodium Chloride 0.9% 10 ML Syringe FLUSH PRN (18:26)
[2023-04-22 18:43] LABS: BASOPHILS PERCENT AUTO 0.2 % (0.0-1.0); EOSINOPHILS PERCENT AUTO 0.2 % (1.0-3.0); HEMATOCRIT 40.2 % (37.0-47.0); HEMOGLOBIN 13.2 g/dL (12.0-16.0); LYMPHOCYTES PERCENT AUTO 51.5 % (20.5-50.1); MEAN CORPUSCULAR HEMOGLOBIN 27.5 pg (27.0-34.0); MEAN CORPUSCULAR HGB CONC 32.8 g/dL (33.0-35.0); MEAN CORPUSCULAR VOLUME 83.8 fL (80-100); MONOCYTES PERCENT AUTO 7.4 % (2-8); NEUTROPHILS PERCENT AUTO 40.7 % (42.2-75.2); PLATELET COUNT,PLT 127 10^3/uL (150-450); WHITE BLOOD CELL COUNT,WBC 5.3 10^3/uL (5.0-10.0)
[2023-04-22 19:04] LABS: ALBUMIN 3.2 g/dL (3.4-5.0); ANION GAP 19.7 mEq/L (7-13); BILIRUBIN TOTAL 0.5 mg/dL (0.2-1.0); BUN/CREATININE RATIO 9.2 (No establ ref range); CALCIUM 8.2 mg/dL (8.5-10.1); CREATININE 0.65 mg/dL (0.55-1.02); EST CRCL DRUG DOSING (CG) 106.29 mL/min; POTASSIUM,K 3.7 mmol/L (3.5-5.1); PROTEIN TOTAL,TP 9.5 g/dL (6.4-8.2)
[2023-04-22 19:07] LABS: A/G RATIO 0.51
[2023-04-22 20:01] LABS: AMPHETAMINES,URINE NEGATIVE (NEGATIVE); BARBITURATES,URINE NEGATIVE (NEGATIVE); BENZODIAZEPINE,URINE NEGATIVE (NEGATIVE); MDMA (ECSTASY), URINE NEGATIVE (NEGATIVE); METHADONE,URINE NEGATIVE (NEGATIVE); METHAMPHETAMINES,URINE NEGATIVE (NEGATIVE); OPIATES,URINE NEGATIVE (NEGATIVE); OXYCODONE,URINE NEGATIVE (NEGATIVE); PHENCYCLIDINE,URINE NEGATIVE (NEGATIVE); TCA,URINE NEGATIVE (NEGATIVE)
== END 2023-04-22 19:36 | disposition left against medical advice (07) ==
LOC: DL.ED 17:30
DX: Z53.21 Procedure and treatment not carried out due to patient leaving prior to being seen by health care provider (principal)
CPT/HCPCS: 36415; 80053; 80143; 80179; 80305; 80307; 83735; 85025; 93005; J7030; J3490

== ENCOUNTER 2023-11-22 00:55 | Inpatient (IN) | payer MEDICAID ==
[2023-11-22] MEDS: Sodium Chloride 0.9% 10 ML Syringe FLUSH PRN (01:13)
[2023-11-22] MEDS: Sodium Chloride 0.9% 1,000 ML IV SCH ×3 (01:13→05:11)
[2023-11-22 01:21] LABS: HEMATOCRIT 36.4 % (37.0-47.0); HEMOGLOBIN 12.2 g/dL (12.0-16.0); MEAN CORPUSCULAR HEMOGLOBIN 28.4 pg (27.0-34.0); MEAN CORPUSCULAR HGB CONC 33.5 g/dL (33.0-35.0); MEAN CORPUSCULAR VOLUME 84.8 fL (80-100); PLATELET COUNT,PLT 45 10^3/uL (150-450); RED BLOOD CELL COUNT 4.29 10^6/uL (4.2-5.4); WHITE BLOOD CELL COUNT,WBC 11.9 10^3/uL (5.0-10.0)
[2023-11-22 01:31] LABS: BASOPHILS PERCENT AUTO 0.1 % (0.0-1.0); EOSINOPHILS PERCENT AUTO 0.2 % (1.0-3.0); LYMPHOCYTES PERCENT AUTO 5.5 % (20.5-50.1); MONOCYTES PERCENT AUTO 4.5 % (2-8); NEUTROPHILS PERCENT AUTO 89.7 % (42.2-75.2)
[2023-11-22 01:41] LABS: KETONES,BLOOD NEGATIVE
[2023-11-22 01:47] LABS: BAND PERCENT MAN 10 %; LYMPHOCYTES PERCENT MAN 6 % (20-50); MONOCYTES PERCENT MAN 4 % (2-8); SEG NEUTROPHILS PERCENT MAN 80 % (42-75)
[2023-11-22 01:47] LABS: CORONAVIRUS COVID-19 NAA NEGATIVE (NEGATIVE); INFLUENZA A NAA NEGATIVE (NEGATIVE); INFLUENZA B NAA NEGATIVE (NEGATIVE); RESPIRATORY SYNCYTIAL VIR NAA NEGATIVE (NEGATIVE)
[2023-11-22 01:50] LABS: ALANINE AMINOTRANSFERASE,ALT 30 U/L (14-59); ALBUMIN 1.7 g/dL (3.4-5.0); ALKALINE PHOSPHATASE 425 U/L (46-116); ANION GAP 13.1 mEq/L (7-13); ASPARTATE AMNIOTRANSFERASE,AST 62 U/L (15-37); BILIRUBIN TOTAL 2.7 mg/dL (0.2-1.0); BLOOD UREA NITROGEN,BUN 23 mg/dL (7-18); BUN/CREATININE RATIO 13.9 (No establ ref range); CALCIUM 8.1 mg/dL (8.5-10.1); CARBON DIOXIDE,CO2 24 mmol/L (21-32); CHLORIDE,CL 88 mmol/L (98-107); CREATININE 1.65 mg/dL (0.55-1.02); EST CRCL DRUG DOSING (CG) 41.43 mL/min; POTASSIUM,K 3.1 mmol/L (3.5-5.1); PROTEIN TOTAL,TP 6.7 g/dL (6.4-8.2); SODIUM,NA 122 mmol/L (136-145)
[2023-11-22 01:51] LABS: A/G RATIO 0.34; ESTIMATED GFR 39 mL/min (>=60); GLUCOSE RANDOM 520 mg/dL (70-99)
[2023-11-22] MEDS: Potassium Chloride 10% 20 MEQ/15 ML Soln 15 ML UD Cup PO ONE (02:18)
[2023-11-22] MEDS ORDERED: Glucagon,Human Recombinant 1 MG Vial IM PRN ×2 (02:21→09:36)
[2023-11-22] MEDS ORDERED: 50% Dextrose in Water 50 ML Syringe IVPUSH PRN ×2 (02:21→09:36)
[2023-11-22] MEDS: Potassium Chloride 10 MEQ in Premix Bag 1 BAG IV ONE (02:24)
[2023-11-22] MEDS: Sodium Chloride 0.9% 1,000 ML IV ONE (02:24)
[2023-11-22 02:33] LABS: APPEARANCE,URINE SLIGHTLY CLOUDY (CLEAR); BILIRUBIN,URINE SMALL (NEGATIVE); COLOR,URINE YELLOW (YELLOW); GLUCOSE,URINE 500 (NEGATIVE); KETONES,URINE TRACE (NEGATIVE); LEUKOCYTE ESTERASE,URINE SMALL (NEGATIVE); NITRITE,URINE NEGATIVE (NEGATIVE); OCCULT BLOOD,URINE MODERATE (NEGATIVE); PH,URINE 5.5 (5.0-9.0); PROTEIN,URINE 100 (NEGATIVE)
[2023-11-22 02:41] LABS: WBC,URINE >100 /HPF (0-5/HPF)
[2023-11-22 02:42] LABS: BACTERIA,URINE MANY /HPF (0-FEW/HPF); EPITHELIAL CELLS,URINE FEW /HPF (NOT SEEN)
[2023-11-22] MEDS: Ketorolac 30 MG/ML SDV IVPUSH ONE (02:57)
[2023-11-22 03:06] LABS: METHAMPHETAMINES,URINE POSITIVE (NEGATIVE)
[2023-11-22 03:07] LABS: AMPHETAMINES,URINE NEGATIVE (NEGATIVE); BARBITURATES,URINE NEGATIVE (NEGATIVE); BENZODIAZEPINE,URINE NEGATIVE (NEGATIVE); MDMA (ECSTASY), URINE NEGATIVE (NEGATIVE); METHADONE,URINE NEGATIVE (NEGATIVE); OPIATES,URINE NEGATIVE (NEGATIVE); OXYCODONE,URINE NEGATIVE (NEGATIVE); PHENCYCLIDINE,URINE NEGATIVE (NEGATIVE); TCA,URINE NEGATIVE (NEGATIVE)
[2023-11-22] MEDS: Ondansetron 4 MG/2 ML SDV IVPUSH ONE (03:27)
[2023-11-22] MEDS: cefTRIAXone 1 GM Vial IVPUSH ONE ×3 (03:30→03:41)
[2023-11-22] MEDS: Insulin Regular, Human 100 Units/ML 3 ML Vial IV ONE (03:43)
[2023-11-22 04:37] LABS: ANION GAP 12.1 mEq/L (7-13); CALCIUM 7.2 mg/dL (8.5-10.1); CREATININE 1.46 mg/dL (0.55-1.02); EST CRCL DRUG DOSING (CG) 46.82 mL/min; POTASSIUM,K 3.1 mmol/L (3.5-5.1)
[2023-11-22] MEDS: Potassium Chloride 20 MEQ in Premix Bag 1 BAG IV ONE (05:11)
[2023-11-22] MEDS ORDERED: Magnesium Hydroxide 400 MG/5 ML Susp 30 ML Cup PO PRN (09:29)
[2023-11-22] MEDS ORDERED: Naloxone 2 MG/2 ML Syringe IVPUSH PRN (09:29)
[2023-11-22] MEDS ORDERED: Albuterol/Ipratropium 3.0-0.5 MG/3 ML Neb Soln NEB PRN (09:29)
[2023-11-22] MEDS ORDERED: Polyethylene Glycol 3350 Powder 17 GM Packet PO PRN (09:29)
[2023-11-22] MEDS ORDERED: HYDROmorphone 0.5 MG/0.5 ML Syringe IVPUSH PRN (09:29)
[2023-11-22] MEDS ORDERED: Acetaminophen 325 MG Tab PO PRN (09:29)
[2023-11-22] MEDS ORDERED: hydrALAZINE 20 MG/ML SDV IVPUSH PRN (09:35)
[2023-11-22] MEDS ORDERED: cloNIDine 0.1 MG Tab PO PRN (09:39)
[2023-11-22] MEDS ORDERED: Haloperidol Lactate 5 MG/ML SDV IM PRN (09:39)
[2023-11-22] MEDS ORDERED: guaiFENesin/Dextromethorphan 100-10 MG/5 ML Soln 5 ML Cup PO PRN (09:42)
[2023-11-22 09:56] LABS: HEMOGLOBIN A1C 8.8 % (<5.7)
[2023-11-22 10:47] LABS: CREATININE,URINE RAND 97.07 mg/dL (No establ ref range); MICROALBUMIN CREAT RATIO,UR 192.7 mg/g (<30 MALB/CREA RATIO)
[2023-11-22 10:48] LABS: MICROALBUMIN,URINE RANDOM 187.1 mg/L (<20.0 mg/L)
[2023-11-22 10:59] LABS: C-REACTIVE PROTEIN 17.48 ng/dL (<=0.50)
[2023-11-22] MEDS: MVI, Adult with Vitamin K 10 ML, Folic Acid 1 MG, Thiamine 100 MG in Lactated Ringers 1... IV ONE (11:17)
[2023-11-22] MEDS: Thiamine 100 MG in Sodium Chloride 0.9% 50 ML IV ONE (11:20)
[2023-11-22] MEDS: Potassium Chloride 10 MEQ Tab.ER PO ONE (11:23)
[2023-11-22] MEDS: Acetaminophen/oxyCODONE 325-5 MG Tab PO PRN (11:24)
[2023-11-22] MEDS: NICOTINE 14 MG TRDERM SCH (11:25)
[2023-11-22] MEDS: LORazepam 2 MG/ML SDV IV PRN (11:28)
[2023-11-22] MEDS: Ondansetron 4 MG/2 ML SDV IVPUSH PRN (11:35)
[2023-11-22] MEDS: Magnesium Sulfate/Water 2 GM in Premix Bag 1 BAG IV ONE (11:42)
[2023-11-22] MEDS: Insulin Lispro 100 Units/ML 3 ML Vial SUBCUT SCH (12:03)
[2023-11-22] MEDS: Piperacillin/Tazobactam 4.5 GM in Sodium Chloride 0.9% 100 ML IV ONE (12:03)
[2023-11-22] MEDS ORDERED: Piperacillin/Tazobactam 4.5 GM in Sodium Chloride 0.9% 100 ML IV SCH (16:00)
[2023-11-22] MEDS: Piperacillin/Tazobactam 4.5 GM in Sodium Chloride 0.9% 100 ML IV SCH (16:12)
[2023-11-22] MEDS: VANCOmycin 1.75 GM/350 ML 350 ML IV ONE (20:27)
[2023-11-22] MEDS: Famotidine 20 MG Tab PO SCH (20:44)
[2023-11-22] MEDS: Saccharomyces Boulardii (Probiotic) 250 MG Cap PO SCH (20:44)
[2023-11-22] MEDS: Midodrine 5 MG Tab PO PRN (20:44)
[2023-11-22] MEDS: Insulin Glarg,Human.Rec.Analog 100 Unit/ML 10 ML Vial SUBCUT SCH (21:01)
[2023-11-23] MEDS: Sodium Chloride 0.9% 1,000 ML IV SCH (01:00)
[2023-11-23 06:39] LABS: HEMATOCRIT 33.6 % (37.0-47.0); HEMOGLOBIN 11.6 g/dL (12.0-16.0); MEAN CORPUSCULAR HEMOGLOBIN 29.1 pg (27.0-34.0); MEAN CORPUSCULAR HGB CONC 34.5 g/dL (33.0-35.0); MEAN CORPUSCULAR VOLUME 84.4 fL (80-100); PLATELET COUNT,PLT 34 10^3/uL (150-450); RED BLOOD CELL COUNT 3.98 10^6/uL (4.2-5.4); WHITE BLOOD CELL COUNT,WBC 17.5 10^3/uL (5.0-10.0)
[2023-11-23 06:54] LABS: BASOPHILS PERCENT AUTO 0.1 % (0.0-1.0); EOSINOPHILS PERCENT AUTO 0.2 % (1.0-3.0); LYMPHOCYTES PERCENT AUTO 6.5 % (20.5-50.1); MONOCYTES PERCENT AUTO 6.7 % (2-8); NEUTROPHILS PERCENT AUTO 86.5 % (42.2-75.2)
[2023-11-23 07:12] LABS: ALBUMIN 1.3 g/dL (3.4-5.0); ANION GAP 12.4 mEq/L (7-13); BUN/CREATININE RATIO 21.5 (No establ ref range); CALCIUM 7.7 mg/dL (8.5-10.1); CREATININE 1.3 mg/dL (0.55-1.02); EST CRCL DRUG DOSING (CG) 52.58 mL/min; MAGNESIUM 2.5 mg/dL (1.8-2.4); POTASSIUM,K 4.4 mmol/L (3.5-5.1); VANCOMYCIN RANDOM 21.1 ug/mL (No Normal Range)
[2023-11-23 07:24] LABS: A/G RATIO 0.28
[2023-11-23 07:36] LABS: BAND PERCENT MAN 13 %; BASOPHILS PERCENT MAN 1; LYMPHOCYTES PERCENT MAN 13 % (20-50); MONOCYTES PERCENT MAN 7 % (2-8); SEG NEUTROPHILS PERCENT MAN 66 % (42-75)
[2023-11-23 07:39] LABS: TOXIC GRANULATION 1+ SLIGHT
[2023-11-23 07:40] LABS: PLATELET COUNT ESTIMATE MARKED DEC
[2023-11-23] MEDS: Cholecalciferol (Vitamin D3) 25 MCG Tab PO ONE (12:07)
[2023-11-23] MEDS: Midodrine 5 MG Tab PO SCH (16:34)
[2023-11-23] MEDS ORDERED: Lidocaine 2% Viscous Solution 15 ML UD PO PRN (20:24)
[2023-11-23] MEDS: atorvaSTATin 20 MG Tab PO SCH (21:35)
[2023-11-23] MEDS: Folic Acid 1 MG Tab PO SCH (21:35)
[2023-11-23] MEDS: Multivitamin Tab PO SCH (21:36)
[2023-11-23] MEDS: Thiamine 100 MG Tab PO SCH (21:36)
[2023-11-24 06:44] LABS: BASOPHILS PERCENT AUTO 0.1 % (0.0-1.0); EOSINOPHILS PERCENT AUTO 0.3 % (1.0-3.0); HEMATOCRIT 33.2 % (37.0-47.0); HEMOGLOBIN 11.4 g/dL (12.0-16.0); LYMPHOCYTES PERCENT AUTO 9.7 % (20.5-50.1); MEAN CORPUSCULAR HEMOGLOBIN 29.2 pg (27.0-34.0); MEAN CORPUSCULAR HGB CONC 34.3 g/dL (33.0-35.0); MEAN CORPUSCULAR VOLUME 84.9 fL (80-100); MONOCYTES PERCENT AUTO 6.3 % (2-8); PLATELET COUNT,PLT 47 10^3/uL (150-450); RED BLOOD CELL COUNT 3.91 10^6/uL (4.2-5.4); WHITE BLOOD CELL COUNT,WBC 19.1 10^3/uL (5.0-10.0)
[2023-11-24 06:55] LABS: NEUTROPHILS PERCENT AUTO 83.6 % (42.2-75.2)
[2023-11-24 07:25] LABS: A/G RATIO 0.25; ALBUMIN 1.2 g/dL (3.4-5.0); BILIRUBIN TOTAL 2.7 mg/dL (0.2-1.0); BUN/CREATININE RATIO 21.5 (No establ ref range); C-REACTIVE PROTEIN 9.44 ng/dL (<=0.50); CALCIUM 7.4 mg/dL (8.5-10.1); CREATININE 1.07 mg/dL (0.55-1.02); EST CRCL DRUG DOSING (CG) 63.89 mL/min; MAGNESIUM 2.3 mg/dL (1.8-2.4)
[2023-11-24] MEDS: Cholecalciferol (Vitamin D3) 25 MCG Tab PO SCH (08:43)
[2023-11-24] MEDS: Meropenem 1 GM SDV IVPUSH ONE (11:26)
[2023-11-24 16:42] LABS: INSULIN 12 uIU/mL (3-25)
[2023-11-24] MEDS: Sucralfate Suspension 1 GM/10 ML Cup PO SCH (17:23)
[2023-11-24] MEDS: Meropenem 1 GM SDV IVPUSH SCH ×2 (17:27→18:32)
[2023-11-24] MEDS ORDERED: Temazepam 15 MG Cap PO PRN (20:46)
[2023-11-25 06:54] LABS: EOSINOPHILS PERCENT AUTO 0.3 % (1.0-3.0); HEMATOCRIT 33.6 % (37.0-47.0); HEMOGLOBIN 11.5 g/dL (12.0-16.0); LYMPHOCYTES PERCENT AUTO 11.1 % (20.5-50.1); MEAN CORPUSCULAR HEMOGLOBIN 29.2 pg (27.0-34.0); MEAN CORPUSCULAR HGB CONC 34.2 g/dL (33.0-35.0); MEAN CORPUSCULAR VOLUME 85.3 fL (80-100); MONOCYTES PERCENT AUTO 8.1 % (2-8); NEUTROPHILS PERCENT AUTO 80.5 % (42.2-75.2); PLATELET COUNT,PLT 50 10^3/uL (150-450); RED BLOOD CELL COUNT 3.94 10^6/uL (4.2-5.4); WHITE BLOOD CELL COUNT,WBC 11.9 10^3/uL (5.0-10.0)
[2023-11-25 07:21] LABS: ALBUMIN 1.3 g/dL (3.4-5.0); ANION GAP 11.3 mEq/L (7-13); BILIRUBIN TOTAL 2.6 mg/dL (0.2-1.0); BUN/CREATININE RATIO 14.4 (No establ ref range); C-REACTIVE PROTEIN 6.42 ng/dL (<=0.50); CALCIUM 7.5 mg/dL (8.5-10.1); CREATININE 0.97 mg/dL (0.55-1.02); EST CRCL DRUG DOSING (CG) 70.47 mL/min; MAGNESIUM 2.2 mg/dL (1.8-2.4); POTASSIUM,K 4.3 mmol/L (3.5-5.1); PROTEIN TOTAL,TP 6.8 g/dL (6.4-8.2)
[2023-11-25 07:24] LABS: A/G RATIO 0.24
[2023-11-25] MEDS: Insulin Glarg,Human.Rec.Analog 100 Unit/ML 10 ML Vial SUBCUT SCH (20:57)
[2023-11-26 06:24] LABS: BASOPHILS PERCENT AUTO 0.2 % (0.0-1.0); EOSINOPHILS PERCENT AUTO 0.3 % (1.0-3.0); HEMOGLOBIN 11.5 g/dL (12.0-16.0); MEAN CORPUSCULAR HGB CONC 33.8 g/dL (33.0-35.0); MEAN CORPUSCULAR VOLUME 85.9 fL (80-100); MONOCYTES PERCENT AUTO 6.6 % (2-8); NEUTROPHILS PERCENT AUTO 81.9 % (42.2-75.2); PLATELET COUNT,PLT 56 10^3/uL (150-450); RED BLOOD CELL COUNT 3.96 10^6/uL (4.2-5.4); WHITE BLOOD CELL COUNT,WBC 11.3 10^3/uL (5.0-10.0)
[2023-11-26 06:50] LABS: ALBUMIN 1.2 g/dL (3.4-5.0); ANION GAP 9.3 mEq/L (7-13); BILIRUBIN TOTAL 1.9 mg/dL (0.2-1.0); BUN/CREATININE RATIO 9.9 (No establ ref range); C-REACTIVE PROTEIN 3.99 ng/dL (<=0.50); CALCIUM 7.4 mg/dL (8.5-10.1); CREATININE 0.91 mg/dL (0.55-1.02); EST CRCL DRUG DOSING (CG) 75.12 mL/min; MAGNESIUM 2.2 mg/dL (1.8-2.4); POTASSIUM,K 4.3 mmol/L (3.5-5.1); PROTEIN TOTAL,TP 6.7 g/dL (6.4-8.2)
[2023-11-26 06:51] LABS: A/G RATIO 0.22
[2023-11-26] MEDS: Metoclopramide 10 MG/2 ML SDV IVPUSH PRN (09:09)
[2023-11-26] MEDS ORDERED: oxyCODONE ER 10 MG TAB.ER PO PRN (11:07)
[2023-11-26] MEDS: oxyCODONE ER 10 MG TAB.ER PO ONE (11:18)
[2023-11-26] MEDS: Meropenem 1 GM SDV IVPUSH SCH (14:27)
[2023-11-26] MEDS: Metoclopramide 10 MG Tab PO SCH (16:40)
[2023-11-27] MEDS: Sennosides/Docusate Sodium 50-8.6 MG Tab PO PRN (03:27)
[2023-11-27] MEDS: Levofloxacin/Dextrose 5%-Water 500 MG in Premix Bag 1 BAG IV ONE (08:07)
[2023-11-27] MEDS ORDERED: cefTRIAXone 2 GM Vial IVPUSH SCH (09:00)
[2023-11-27] MEDS ORDERED: Levofloxacin/Dextrose 5%-Water 500 MG in Premix Bag 1 BAG IV SCH (09:00)
[2023-11-27 09:35] LABS: BASOPHILS PERCENT AUTO 0.1 % (0.0-1.0); EOSINOPHILS PERCENT AUTO 0.2 % (1.0-3.0); HEMATOCRIT 34.7 % (37.0-47.0); HEMOGLOBIN 11.7 g/dL (12.0-16.0); LYMPHOCYTES PERCENT AUTO 10.5 % (20.5-50.1); MEAN CORPUSCULAR HEMOGLOBIN 28.8 pg (27.0-34.0); MEAN CORPUSCULAR HGB CONC 33.7 g/dL (33.0-35.0); MEAN CORPUSCULAR VOLUME 85.5 fL (80-100); MONOCYTES PERCENT AUTO 5.6 % (2-8); NEUTROPHILS PERCENT AUTO 83.6 % (42.2-75.2); PLATELET COUNT,PLT 80 10^3/uL (150-450); RED BLOOD CELL COUNT 4.06 10^6/uL (4.2-5.4); WHITE BLOOD CELL COUNT,WBC 9.2 10^3/uL (5.0-10.0)
[2023-11-27 09:56] LABS: A/G RATIO 0.22; ALBUMIN 1.3 g/dL (3.4-5.0); ANION GAP 8.5 mEq/L (7-13); BILIRUBIN TOTAL 1.5 mg/dL (0.2-1.0); C-REACTIVE PROTEIN 3.36 ng/dL (<=0.50); CALCIUM 7.6 mg/dL (8.5-10.1); CREATININE 0.84 mg/dL (0.55-1.02); EST CRCL DRUG DOSING (CG) 81.38 mL/min; POTASSIUM,K 4.5 mmol/L (3.5-5.1); PROTEIN TOTAL,TP 7.3 g/dL (6.4-8.2)
[2023-11-27] MEDS: Lactulose Soln 10 GM/15 ML 30 ML UD Cup PO ONE (10:26)
[2023-11-27] MEDS: Bisacodyl 10 MG Supp RECTAL ONE (10:26)
[2023-11-27] MEDS: FLU (Fluarix Quad) QS2023-24(6MOS UP)/PF 60 MCG/0.5 ML Syringe IM ONE (10:30)
[2023-11-27] MEDS: Benzocaine/Docusate Sodium 20-283 MG/5 ML Enema RECTAL ONE (10:49)
== END 2023-11-27 11:40 | disposition home or self-care (01) | DRG 871 ==
LOC: DL.ED 00:55 → DL.MS 06:55 → DL.ED 07:52
PROVIDERS: ADMIT Internal Medicine; ATTEND Internal Medicine
DX: A41.51 Sepsis due to Escherichia coli [E. coli] (principal); E43 Unspecified severe protein-calorie malnutrition; R65.21 Severe sepsis with septic shock; N10 Acute pyelonephritis; E87.1 Hypo-osmolality and hyponatremia; E87.20 Acidosis, unspecified; K80.00 Calculus of gallbladder with acute cholecystitis without obstruction; N17.9 Acute kidney failure, unspecified; Z16.21 Resistance to vancomycin; Z16.29 Resistance to other single specified antibiotic; I10 Essential (primary) hypertension; E66.9 Obesity, unspecified; F41.9 Anxiety disorder, unspecified; E11.65 Type 2 diabetes mellitus with hyperglycemia; E87.6 Hypokalemia; R74.01 Elevation of levels of liver transaminase levels; D69.6 Thrombocytopenia, unspecified; I95.9 Hypotension, unspecified; E88.09 Other disorders of plasma-protein metabolism, not elsewhere classified; E83.42 Hypomagnesemia; N28.9 Disorder of kidney and ureter, unspecified; K70.9 Alcoholic liver disease, unspecified; F15.10 Other stimulant abuse, uncomplicated; F17.210 Nicotine dependence, cigarettes, uncomplicated; E11.43 Type 2 diabetes mellitus with diabetic autonomic (poly)neuropathy; K31.84 Gastroparesis; E87.8 Other disorders of electrolyte and fluid balance, not elsewhere classified; D72.829 Elevated white blood cell count, unspecified; E80.6 Other disorders of bilirubin metabolism; E78.5 Hyperlipidemia, unspecified; K29.20 Alcoholic gastritis without bleeding; F10.20 Alcohol dependence, uncomplicated; Z88.5 Allergy status to narcotic agent; Z88.1 Allergy status to other antibiotic agents; Z79.84 Long term (current) use of oral hypoglycemic drugs; Z79.899 Other long term (current) drug therapy; Z68.31 Body mass index [BMI] 31.0-31.9, adult; Z98.891 History of uterine scar from previous surgery; Z79.4 Long term (current) use of insulin
CPT/HCPCS: 0241U; 36415; 71045; 74176; 76770; 80048; 80053; 80061; 80202; 80305-QW; 80307; 81001; 81025; 82009; 82043; 82306; 82947; 83036; 83605; 83735; 84145; 84484; 84703; 85025; 86140; 87040; 87077; 87086; 87088; 87186; 90686; 93005; 93010; 94010; 94060; 94667; 94668; 94760; 96361; 96365; 96366; 96375; 99233; 99238; 99285; 99285-25; 99291; A9270-GY; G0008; J0696; J1815-GY; J1885; J1956; J2060; J2185; J2405; J2543; J2765; J3370; J3411; J3475; J3480; J3490; J7030; J7050; J7120

== ENCOUNTER 2024-04-07 16:36 | Emergency (ER) | payer MEDICAID ==
[2024-04-07 17:42] LABS: BASOPHILS PERCENT AUTO 0.5 % (0.0-1.0); EOSINOPHILS PERCENT AUTO 0.5 % (1.0-3.0); HEMATOCRIT 43.6 % (37.0-47.0); HEMOGLOBIN 14.3 g/dL (12.0-16.0); LYMPHOCYTES PERCENT AUTO 53.9 % (20.5-50.1); MEAN CORPUSCULAR HEMOGLOBIN 29.5 pg (27.0-34.0); MEAN CORPUSCULAR HGB CONC 32.8 g/dL (33.0-35.0); MEAN CORPUSCULAR VOLUME 90.1 fL (80-100); MONOCYTES PERCENT AUTO 5.5 % (2-8); NEUTROPHILS PERCENT AUTO 39.6 % (42.2-75.2); PLATELET COUNT,PLT 169 10^3/uL (150-450); RED BLOOD CELL COUNT 4.84 10^6/uL (4.2-5.4); WHITE BLOOD CELL COUNT,WBC 4.4 10^3/uL (5.0-10.0)
[2024-04-07] MEDS: Lactulose Soln 10 GM/15 ML 30 ML UD Cup PO ONE (18:02)
== END 2024-04-07 18:02 | disposition home or self-care (01) ==
LOC: DL.ED 16:36
DX: K64.8 Other hemorrhoids (principal); K59.00 Constipation, unspecified; F17.210 Nicotine dependence, cigarettes, uncomplicated; Z88.1 Allergy status to other antibiotic agents; Z88.5 Allergy status to narcotic agent; Z79.4 Long term (current) use of insulin; Z79.899 Other long term (current) drug therapy
CPT/HCPCS: 36415; 85025; 99284; A9270

== ENCOUNTER 2024-06-06 17:42 | Emergency (ER) | payer MEDICAID ==
[2024-06-06 18:30] LABS: BASOPHILS PERCENT AUTO 0.2 % (0.0-1.0); EOSINOPHILS PERCENT AUTO 0.5 % (1.0-3.0); HEMATOCRIT 44.7 % (37.0-47.0); HEMOGLOBIN 14.6 g/dL (12.0-16.0); LYMPHOCYTES PERCENT AUTO 42.5 % (20.5-50.1); MEAN CORPUSCULAR HEMOGLOBIN 29.9 pg (27.0-34.0); MEAN CORPUSCULAR HGB CONC 32.7 g/dL (33.0-35.0); MEAN CORPUSCULAR VOLUME 91.4 fL (80-100); MONOCYTES PERCENT AUTO 6.2 % (2-8); NEUTROPHILS PERCENT AUTO 50.6 % (42.2-75.2); PLATELET COUNT,PLT 210 10^3/uL (150-450); RED BLOOD CELL COUNT 4.89 10^6/uL (4.2-5.4); WHITE BLOOD CELL COUNT,WBC 6.1 10^3/uL (5.0-10.0)
[2024-06-06 18:45] LABS: AMPHETAMINES,URINE POSITIVE (NEGATIVE); APPEARANCE,URINE SLIGHTLY CLOUDY (CLEAR); BARBITURATES,URINE NEGATIVE (NEGATIVE); BENZODIAZEPINE,URINE NEGATIVE (NEGATIVE); BILIRUBIN,URINE NEGATIVE (NEGATIVE); COLOR,URINE YELLOW (YELLOW); GLUCOSE,URINE NEGATIVE (NEGATIVE); KETONES,URINE NEGATIVE (NEGATIVE); LEUKOCYTE ESTERASE,URINE SMALL (NEGATIVE); MDMA (ECSTASY), URINE NEGATIVE (NEGATIVE); METHADONE,URINE NEGATIVE (NEGATIVE); METHAMPHETAMINES,URINE POSITIVE (NEGATIVE); NITRITE,URINE POSITIVE (NEGATIVE); OCCULT BLOOD,URINE NEGATIVE (NEGATIVE); OPIATES,URINE NEGATIVE (NEGATIVE); OXYCODONE,URINE NEGATIVE (NEGATIVE); PHENCYCLIDINE,URINE NEGATIVE (NEGATIVE); PROTEIN,URINE NEGATIVE (NEGATIVE); TCA,URINE NEGATIVE (NEGATIVE); UROBILINOGEN,URINE 0.2 mg/dL (0.2-1.0)
[2024-06-06 18:52] LABS: A/G RATIO 0.6; ALBUMIN 3.5 g/dL (3.4-5.0); BILIRUBIN TOTAL 0.6 mg/dL (0.2-1.0); CALCIUM 9.2 mg/dL (8.5-10.1); CREATININE 0.78 mg/dL (0.55-1.02); EST CRCL DRUG DOSING (CG) 87.64 mL/min; MAGNESIUM 1.7 mg/dL (1.8-2.4); PROTEIN TOTAL,TP 9.2 g/dL (6.4-8.2)
[2024-06-06] MEDS: Sodium Chloride 0.9% 1,000 ML IV SCH (18:52)
[2024-06-06] MEDS: cefTRIAXone 1 GM Vial IVPUSH ONE (18:57)
[2024-06-06 19:03] LABS: PROTHROMBIN TIME 10.2 SEC (9.0-12.0)
[2024-06-06 19:05] LABS: BACTERIA,URINE MANY /HPF (0-FEW/HPF); EPITHELIAL CELLS,URINE MODERATE /HPF (NOT SEEN); RBC,URINE 0-5 /HPF (0-5)
[2024-06-06] MEDS: Take Home: Ciprofloxacin HCl 500 MG, 6 Tab Pack PO ONE (19:26)
== END 2024-06-06 19:54 | disposition home or self-care (01) ==
LOC: DL.ED 17:42
DX: R42 Dizziness and giddiness (principal); N30.00 Acute cystitis without hematuria; E83.42 Hypomagnesemia; F15.10 Other stimulant abuse, uncomplicated; I10 Essential (primary) hypertension; E66.9 Obesity, unspecified; E11.9 Type 2 diabetes mellitus without complications; Z88.5 Allergy status to narcotic agent; Z88.8 Allergy status to other drugs, medicaments and biological substances; Z79.4 Long term (current) use of insulin; Z79.899 Other long term (current) drug therapy; Z68.28 Body mass index [BMI] 28.0-28.9, adult
CPT/HCPCS: 36415; 70450; 80053; 80305; 80307; 81001; 81025; 83690; 83735; 84484; 85025; 85610; 87086; 87088; 87186; 93005; 96361; 96374; 99284; A9270; J0696; J7030; 93010

== ENCOUNTER 2024-11-20 06:01 | Emergency (ER) | payer MEDICAID ==
[2024-11-20] MEDS ORDERED: Glucagon,Human Recombinant 1 MG Vial IM PRN (06:34)
[2024-11-20] MEDS ORDERED: 50% Dextrose in Water 50 ML Syringe IVPUSH PRN (06:34)
[2024-11-20] MEDS: Insulin Glarg,Human.Rec.Analog 100 Unit/ML 10 ML Vial SUBCUT ONE (06:43)
[2024-11-20] MEDS: Lisinopril 10 MG Tab PO ONE (06:43)
[2024-11-20 06:48] LABS: BASOPHILS PERCENT AUTO 0.3 % (0.0-1.0); EOSINOPHILS PERCENT AUTO 1.2 % (1.0-3.0); HEMATOCRIT 45.4 % (37.0-47.0); HEMOGLOBIN 15.3 g/dL (12.0-16.0); LYMPHOCYTES PERCENT AUTO 40.3 % (20.5-50.1); MEAN CORPUSCULAR HEMOGLOBIN 31.1 pg (27.0-34.0); MEAN CORPUSCULAR HGB CONC 33.7 g/dL (33.0-35.0); MEAN CORPUSCULAR VOLUME 92.3 fL (80-100); MONOCYTES PERCENT AUTO 6.4 % (2-8); NEUTROPHILS PERCENT AUTO 51.8 % (42.2-75.2); PLATELET COUNT,PLT 182 10^3/uL (150-450); RED BLOOD CELL COUNT 4.92 10^6/uL (4.2-5.4)
[2024-11-20] MEDS: Sodium Chloride 0.9% 500 ML IV ONE (07:04)
[2024-11-20 07:07] LABS: APPEARANCE,URINE CLEAR (CLEAR); BILIRUBIN,URINE NEGATIVE (NEGATIVE); COLOR,URINE YELLOW (YELLOW); GLUCOSE,URINE 500 (NEGATIVE); KETONES,URINE NEGATIVE (NEGATIVE); LEUKOCYTE ESTERASE,URINE NEGATIVE (NEGATIVE); NITRITE,URINE NEGATIVE (NEGATIVE); OCCULT BLOOD,URINE NEGATIVE (NEGATIVE); PROTEIN,URINE NEGATIVE (NEGATIVE)
[2024-11-20 07:10] LABS: AMPHETAMINES,URINE NEGATIVE (NEGATIVE); BARBITURATES,URINE NEGATIVE (NEGATIVE); BENZODIAZEPINE,URINE NEGATIVE (NEGATIVE); MDMA (ECSTASY), URINE NEGATIVE (NEGATIVE); METHADONE,URINE NEGATIVE (NEGATIVE); METHAMPHETAMINES,URINE POSITIVE (NEGATIVE); OPIATES,URINE NEGATIVE (NEGATIVE); OXYCODONE,URINE NEGATIVE (NEGATIVE); PHENCYCLIDINE,URINE NEGATIVE (NEGATIVE); TCA,URINE NEGATIVE (NEGATIVE)
[2024-11-20 07:15] LABS: ALANINE AMINOTRANSFERASE,ALT 49 U/L (14-59); ALBUMIN 3.3 g/dL (3.4-5.0); ALKALINE PHOSPHATASE 164 U/L (46-116); ANION GAP 14.8 mEq/L (7-13); ASPARTATE AMNIOTRANSFERASE,AST 61 U/L (15-37); BILIRUBIN TOTAL 0.5 mg/dL (0.2-1.0); BLOOD UREA NITROGEN,BUN 8 mg/dL (7-18); BUN/CREATININE RATIO 10.8 (No establ ref range); CALCIUM 8.4 mg/dL (8.5-10.1); CARBON DIOXIDE,CO2 27 mmol/L (21-32); CHLORIDE,CL 100 mmol/L (98-107); CREATININE 0.74 mg/dL (0.55-1.02); GLUCOSE RANDOM 325 mg/dL (70-99); MAGNESIUM 1.9 mg/dL (1.8-2.4); POTASSIUM,K 3.8 mmol/L (3.5-5.1); PROTEIN TOTAL,TP 9.1 g/dL (6.4-8.2); SODIUM,NA 138 mmol/L (136-145)
[2024-11-20 07:20] LABS: LACTIC ACID 3.1 mmol/L (0.4-2.0)
[2024-11-20 07:21] LABS: A/G RATIO 0.57; C-REACTIVE PROTEIN < 0.50 ng/dL (<=0.50); ESTIMATED GFR 100 mL/min (>=60)
[2024-11-20] MEDS: Sodium Chloride 0.9% 1,000 ML IV ONE (07:43)
[2024-11-20 08:08] LABS: BASE EXCESS VENOUS -1.6 mmol/l ((-2)-(+3)); BICARBONATE,VENOUS 24 mmol/l (19-25); O2 DELIVERY DEVICE ROOM AIR; O2 SATURATION VENOUS 58.2 % (60-80); PCO2 VENOUS 43 mmHg (41-51); PH,VENOUS 7.35 (7.31-7.41); PO2 VENOUS 39 mmHg (35-42)
== END 2024-11-20 10:08 | disposition home or self-care (01) ==
LOC: DL.ED 06:01
DX: E11.9 Type 2 diabetes mellitus without complications (principal); E86.0 Dehydration; I10 Essential (primary) hypertension; F15.10 Other stimulant abuse, uncomplicated; Z88.5 Allergy status to narcotic agent; Z88.1 Allergy status to other antibiotic agents
CPT/HCPCS: 36415; 70450; 71045; 80053; 80305-QW; 80307; 81003; 82803; 82947; 83605; 83735; 84484; 85025; 86140; 93005; 96360; 96361; 99284-25; A9270-GY; J1815-GY; J7030

== ENCOUNTER 2024-12-01 23:11 | Emergency (ER) | payer MEDICAID ==
[2024-12-01] MEDS: Ondansetron 4 MG Tab.DIS PO ONE (23:28)
[2024-12-01 23:31] LABS: BASOPHILS PERCENT AUTO 0.2 % (0.0-1.0); EOSINOPHILS PERCENT AUTO 0.2 % (1.0-3.0); HEMATOCRIT 48.3 % (37.0-47.0); HEMOGLOBIN 16.7 g/dL (12.0-16.0); LYMPHOCYTES PERCENT AUTO 23.4 % (20.5-50.1); MEAN CORPUSCULAR HEMOGLOBIN 31.3 pg (27.0-34.0); MEAN CORPUSCULAR HGB CONC 34.6 g/dL (33.0-35.0); MEAN CORPUSCULAR VOLUME 90.6 fL (80-100); MONOCYTES PERCENT AUTO 10.1 % (2-8); NEUTROPHILS PERCENT AUTO 66.1 % (42.2-75.2); PLATELET COUNT,PLT 154 10^3/uL (150-450); RED BLOOD CELL COUNT 5.33 10^6/uL (4.2-5.4); WHITE BLOOD CELL COUNT,WBC 5.9 10^3/uL (5.0-10.0)
[2024-12-01 23:52] LABS: ALBUMIN 3.2 g/dL (3.4-5.0); BUN/CREATININE RATIO 14.5 (No establ ref range); CALCIUM 9.2 mg/dL (8.5-10.1); CREATININE 1.31 mg/dL (0.55-1.02); EST CRCL DRUG DOSING (CG) 51.63 mL/min; PROTEIN TOTAL,TP 9.7 g/dL (6.4-8.2)
[2024-12-01 23:57] LABS: ANION GAP 12.7 mEq/L (7-13); POTASSIUM,K 3.7 mmol/L (3.5-5.1)
[2024-12-01 23:59] LABS: A/G RATIO 0.49; LACTIC ACID 2.8 mmol/L (0.4-2.0)
[2024-12-02] MEDS: Insulin Regular, Human 100 Units/ML 10 ML Vial IV ONE (00:19)
[2024-12-02] MEDS: Sodium Chloride 0.9% 1,000 ML IV ONE (00:20)
[2024-12-02 01:54] LABS: ANION GAP 10.7 mEq/L (7-13); CALCIUM 8.5 mg/dL (8.5-10.1); CREATININE 0.85 mg/dL (0.55-1.02); EST CRCL DRUG DOSING (CG) 79.57 mL/min; POTASSIUM,K 3.7 mmol/L (3.5-5.1)
== END 2024-12-02 02:24 | disposition home or self-care (01) ==
LOC: DL.ED 23:11
DX: J10.1 Influenza due to other identified influenza virus with other respiratory manifestations (principal); E87.1 Hypo-osmolality and hyponatremia; E11.65 Type 2 diabetes mellitus with hyperglycemia; I10 Essential (primary) hypertension; Z88.1 Allergy status to other antibiotic agents; Z88.5 Allergy status to narcotic agent; Z79.4 Long term (current) use of insulin; Z79.899 Other long term (current) drug therapy
CPT/HCPCS: 36415; 80048; 80053; 80307; 82947; 83605; 83690; 84484; 85025; 87428-QW; 96360; 99284; 99284-25; A9270-GY; J7030

== ENCOUNTER 2025-03-16 20:44 | Inpatient (IN) | payer MEDICAID ==
[2025-03-16 21:05] LABS: BASOPHILS PERCENT AUTO 0.1 % (0.0-1.0); EOSINOPHILS PERCENT AUTO 0.2 % (1.0-3.0); HEMATOCRIT 43.9 % (37.0-47.0); LYMPHOCYTES PERCENT AUTO 7.4 % (20.5-50.1); MEAN CORPUSCULAR HEMOGLOBIN 31.7 pg (27.0-34.0); MEAN CORPUSCULAR HGB CONC 34.2 g/dL (33.0-35.0); MEAN CORPUSCULAR VOLUME 92.8 fL (80-100); MONOCYTES PERCENT AUTO 3.3 % (2-8); PLATELET COUNT,PLT 153 10^3/uL (150-450); RED BLOOD CELL COUNT 4.73 10^6/uL (4.2-5.4)
[2025-03-16] MEDS: Sodium Chloride 0.9% 1,000 ML IV ONE (21:07)
[2025-03-16 21:26] LABS: ALANINE AMINOTRANSFERASE,ALT 60 U/L (14-59); ALKALINE PHOSPHATASE 153 U/L (46-116); ANION GAP 19.8 mEq/L (7-13); ASPARTATE AMNIOTRANSFERASE,AST 40 U/L (15-37); BILIRUBIN TOTAL 0.9 mg/dL (0.2-1.0); BLOOD UREA NITROGEN,BUN 7 mg/dL (7-18); CALCIUM 8.7 mg/dL (8.5-10.1); CARBON DIOXIDE,CO2 21 mmol/L (21-32); CHLORIDE,CL 101 mmol/L (98-107); CREATININE 0.78 mg/dL (0.55-1.02); ETHANOL BLOOD MEDICAL 176 mg/dL (0); GLUCOSE RANDOM 232 mg/dL (70-99); POTASSIUM,K 3.8 mmol/L (3.5-5.1); PROTEIN TOTAL,TP 8.6 g/dL (6.4-8.2); SODIUM,NA 138 mmol/L (136-145)
[2025-03-16 21:28] LABS: A/G RATIO 0.54; ESTIMATED GFR 94 mL/min (>=60)
[2025-03-16 21:32] LABS: HCG QUALITATIVE,SERUM NEGATIVE (NEGATIVE)
[2025-03-16 21:34] LABS: LACTIC ACID 3.6 mmol/L (0.4-2.0)
[2025-03-16 22:34] LABS: APPEARANCE,URINE SLIGHTLY CLOUDY (CLEAR); BILIRUBIN,URINE NEGATIVE (NEGATIVE); COLOR,URINE YELLOW (YELLOW); GLUCOSE,URINE 100 (NEGATIVE); KETONES,URINE 15 (NEGATIVE); LEUKOCYTE ESTERASE,URINE SMALL (NEGATIVE); NITRITE,URINE POSITIVE (NEGATIVE); OCCULT BLOOD,URINE MODERATE (NEGATIVE); PROTEIN,URINE 100 (NEGATIVE)
[2025-03-16 22:40] LABS: AMPHETAMINES,URINE NEGATIVE (NEGATIVE); BARBITURATES,URINE NEGATIVE (NEGATIVE); BENZODIAZEPINE,URINE NEGATIVE (NEGATIVE); MDMA (ECSTASY), URINE NEGATIVE (NEGATIVE); METHADONE,URINE NEGATIVE (NEGATIVE); METHAMPHETAMINES,URINE POSITIVE (NEGATIVE); OPIATES,URINE NEGATIVE (NEGATIVE); OXYCODONE,URINE NEGATIVE (NEGATIVE); PHENCYCLIDINE,URINE NEGATIVE (NEGATIVE); TCA,URINE NEGATIVE (NEGATIVE)
[2025-03-16 22:42] LABS: AMORPHOUS SEDIMENT,URINE FEW /HPF (NOT SEEN); BACTERIA,URINE MODERATE /HPF (0-FEW/HPF); EPITHELIAL CELLS,URINE FEW /HPF (NOT SEEN); MUCUS,URINE FEW /LPF (NOT SEEN); WBC,URINE 30-40 /HPF (0-5/HPF)
[2025-03-16] MEDS: cefTRIAXone 1 GM Vial IVPUSH ONE (23:36)
[2025-03-17] MEDS: Acetaminophen 500 MG Tab PO ONE (00:19)
[2025-03-17] MEDS: Sodium Chloride 0.9% 1,000 ML IV ONE (00:26)
[2025-03-17] MEDS: Iopamidol 612 MG/ML 100 ML Bottle IVPUSH ONE (00:54)
[2025-03-17 04:31] LABS: LACTIC ACID 1.8 mmol/L (0.4-2.0)
[2025-03-17] MEDS ORDERED: LORazepam 2 MG/ML SDV IVPUSH PRN (09:08)
[2025-03-17] MEDS ORDERED: Glucagon,Human Recombinant 1 MG Vial IM PRN (09:11)
[2025-03-17] MEDS ORDERED: 50% Dextrose in Water 50 ML Syringe IVPUSH PRN (09:11)
[2025-03-17] MEDS: chlordiazePOXIDE 25 MG Cap PO SCH (09:25)
[2025-03-17] MEDS: Ondansetron 4 MG/2 ML SDV IVPUSH PRN (09:25)
[2025-03-17] MEDS: Piperacillin/Tazobactam 4.5 GM in Sodium Chloride 0.9% 100 ML IV ONE (09:25)
[2025-03-17] MEDS: Metoprolol Tartrate 5 MG/5 ML SDV IVPUSH SCH (10:37)
[2025-03-17] MEDS: MVI, Adult with Vitamin K 10 ML, Folic Acid 1 MG, Thiamine 100 MG in Lactated Ringers 1... IV ONE (10:37)
[2025-03-17] MEDS: Acetaminophen 325 MG Tab PO PRN (10:43)
[2025-03-17 10:59] LABS: HEMOGLOBIN A1C 8.1 % (<5.7)
[2025-03-17 11:25] LABS: FOLIC ACID 10.6 ng/mL (8.6-58.9); T4 FREE 1.05 ng/dL (0.76-1.46); TSH ULTRASENSITIVE 1.09 uIU/mL (0.36-3.74)
[2025-03-17] MEDS: Sodium Chloride 0.9% 1,000 ML IV SCH (13:40)
[2025-03-17] MEDS: Heparin Sodium 5,000 Units/ML Vial SUBCUT SCH (13:40)
[2025-03-17] MEDS: Insulin Lispro 100 Units/ML 3 ML Vial SUBCUT SCH (13:40)
[2025-03-17] MEDS: Piperacillin/Tazobactam 4.5 GM in Sodium Chloride 0.9% 100 ML IV SCH (17:45)
[2025-03-17] MEDS: Insulin Glarg,Human.Rec.Analog 100 Unit/ML 10 ML Vial SUBCUT SCH (21:03)
[2025-03-18 06:51] LABS: BASOPHILS PERCENT AUTO 0.1 % (0.0-1.0); EOSINOPHILS PERCENT AUTO 0.5 % (1.0-3.0); HEMATOCRIT 37.3 % (37.0-47.0); HEMOGLOBIN 12.3 g/dL (12.0-16.0); LYMPHOCYTES PERCENT AUTO 9.4 % (20.5-50.1); MEAN CORPUSCULAR HEMOGLOBIN 31.4 pg (27.0-34.0); MEAN CORPUSCULAR VOLUME 95.2 fL (80-100); MONOCYTES PERCENT AUTO 6.2 % (2-8); NEUTROPHILS PERCENT AUTO 83.8 % (42.2-75.2); PLATELET COUNT,PLT 90 10^3/uL (150-450); RED BLOOD CELL COUNT 3.92 10^6/uL (4.2-5.4); WHITE BLOOD CELL COUNT,WBC 12.4 10^3/uL (5.0-10.0)
[2025-03-18 07:17] LABS: ALBUMIN 2.1 g/dL (3.4-5.0); ANION GAP 11.6 mEq/L (7-13); BILIRUBIN DIRECT 0.5 mg/dL (0.0-0.2); BILIRUBIN INDIRECT 0.5; CALCIUM 8.2 mg/dL (8.5-10.1); CREATININE 0.86 mg/dL (0.55-1.02); EST CRCL DRUG DOSING (CG) 78.64 mL/min; MAGNESIUM 1.6 mg/dL (1.8-2.4); PHOSPHORUS 1.8 mg/dL (2.6-4.7); POTASSIUM,K 3.6 mmol/L (3.5-5.1); PROTEIN TOTAL,TP 6.9 g/dL (6.4-8.2)
[2025-03-18 07:18] LABS: A/G RATIO 0.44
[2025-03-18] MEDS: Phosphorus #1 250 MG Tab PO SCH (09:22)
[2025-03-18] MEDS: Insulin Isophane NPH, Human 100 Units/ML 10 ML Vial SUBCUT ONE (09:23)
[2025-03-18] MEDS: Magnesium Sulfate 2 GM/50 mL 2 GM in Premix Bag 1 BAG IV ONE (09:25)
[2025-03-18] MEDS: Magnesium Oxide 400 MG Tab PO SCH (17:12)
[2025-03-18] MEDS: Insulin Glarg,Human.Rec.Analog 100 Unit/ML 10 ML Vial SUBCUT SCH (19:58)
[2025-03-19 09:22] LABS: BASOPHILS PERCENT AUTO 0.1 % (0.0-1.0); EOSINOPHILS PERCENT AUTO 0.5 % (1.0-3.0); HEMATOCRIT 37.5 % (37.0-47.0); HEMOGLOBIN 12.4 g/dL (12.0-16.0); LYMPHOCYTES PERCENT AUTO 15.4 % (20.5-50.1); MEAN CORPUSCULAR HEMOGLOBIN 31.6 pg (27.0-34.0); MEAN CORPUSCULAR HGB CONC 33.1 g/dL (33.0-35.0); MEAN CORPUSCULAR VOLUME 95.4 fL (80-100); MONOCYTES PERCENT AUTO 10.4 % (2-8); NEUTROPHILS PERCENT AUTO 73.6 % (42.2-75.2); PLATELET COUNT,PLT 93 10^3/uL (150-450); RED BLOOD CELL COUNT 3.93 10^6/uL (4.2-5.4); WHITE BLOOD CELL COUNT,WBC 8.4 10^3/uL (5.0-10.0)
[2025-03-19 09:36] LABS: ANION GAP 12.5 mEq/L (7-13); CALCIUM 8.1 mg/dL (8.5-10.1); CREATININE 0.86 mg/dL (0.55-1.02); EST CRCL DRUG DOSING (CG) 78.64 mL/min; MAGNESIUM 1.9 mg/dL (1.8-2.4); POTASSIUM,K 3.5 mmol/L (3.5-5.1)
[2025-03-19 10:04] LABS: ALBUMIN 2.2 g/dL (3.4-5.0); BILIRUBIN DIRECT 0.5 mg/dL (0.0-0.2); BILIRUBIN INDIRECT 0.4; BILIRUBIN TOTAL 0.9 mg/dL (0.2-1.0); PROTEIN TOTAL,TP 7.2 g/dL (6.4-8.2)
[2025-03-19 10:05] LABS: A/G RATIO 0.44
[2025-03-19] MEDS: Cefdinir 300 MG Cap PO SCH (10:54)
[2025-03-19] MEDS: Pantoprazole 40 MG Vial IVPUSH ONE (10:54)
[2025-03-19] MEDS: GI Cocktail Oral Solution 30 ML PO ONE (10:54)
[2025-03-19] MEDS: chlordiazePOXIDE 25 MG Cap PO SCH ×3 (11:52→18:07)
[2025-03-19] MEDS ORDERED: Loperamide 2 MG Cap PO PRN (22:55)
[2025-03-19] MEDS: Loperamide 2 MG Cap PO ONE (23:19)
[2025-03-20] MEDS ORDERED: Cefdinir 300 MG Cap PO ONE (10:44)
[2025-03-22 22:42] LABS: VITAMIN B1, WHOLE BLOOD 218 nmol/L (70-180)
== END 2025-03-20 10:45 | disposition home or self-care (01) | DRG 872 ==
LOC: DL.ED 20:44 → DL.MS 03-17 07:34
PROVIDERS: ADMIT Internal Medicine; ATTEND Internal Medicine
DX: A41.51 Sepsis due to Escherichia coli [E. coli] (principal); N12 Tubulo-interstitial nephritis, not specified as acute or chronic; N30.01 Acute cystitis with hematuria; E87.20 Acidosis, unspecified; R65.20 Severe sepsis without septic shock; H54.7 Unspecified visual loss; I10 Essential (primary) hypertension; E11.9 Type 2 diabetes mellitus without complications; E66.9 Obesity, unspecified; E83.42 Hypomagnesemia; E83.39 Other disorders of phosphorus metabolism; F10.20 Alcohol dependence, uncomplicated; K76.0 Fatty (change of) liver, not elsewhere classified; F12.10 Cannabis abuse, uncomplicated; N91.2 Amenorrhea, unspecified; Z88.5 Allergy status to narcotic agent; Z88.1 Allergy status to other antibiotic agents; Z79.4 Long term (current) use of insulin; Z79.899 Other long term (current) drug therapy; Z68.30 Body mass index [BMI] 30.0-30.9, adult
CPT/HCPCS: 36415; 71045; 74177; 80048; 80053; 80061; 80076; 80305-QW; 80307; 81001; 82607; 82746; 82947; 83036; 83605; 83690; 83735; 84100; 84425; 84439; 84443; 84703; 85025; 87040; 87077; 87086; 87088; 87186; 99223; 99232; 99233; 99239; 99284; A9270-GY; J0696; J1580; J1644; J1815-GY; J2405; J2470; J2543; J3411; J3475; J3490; J7030; J7120; Q9967